=== PATIENT | female | born 1980 | race Caucasian/White ===

== ENCOUNTER 2019-11-14 10:35 | Emergency (ER) | payer BC, OTHER ==
--- NOTE | 2019-11-14 11:04 | ED ---
Lower Extremity Injury HPI - General Chief Complaint: Extremity Injury, Lower Stated Complaint: Knee Pain Time Seen by Provider: 11/14/19 10:53 Source: patient, RN notes reviewed Mode of arrival: wheelchair Limitations: no limitations - History of Present Illness Initial Comments: 39-year-old female presents emergency Department with chief complaint of left knee, right ankle injury. Patient states a few days ago she twisted her legs on some ice. Patient states her left knee is most bothersome which she also has mild right knee pain and right ankle pain. Patient states right knee is able to ambulate with no difficulty. She states there is bruising states that his been clicking and popping of her left knee. Patient had no prior injuries to this. Denies any hip pain no other injuries noted. Patient states she is on Coumadin but denies having head injury and states that she has not had her INR checked recently she states usually has problems with it being high and low. - Related Data Previous Rx's Medication Instructions Recorded methylPREDNISolone Dose Pack 4 mg PO DIRECTED #21 package 03/05/15 [Medrol Dose Pack] Allergies Allergy/AdvReac Type Severity Reaction Status Date / Time acetaminophen [From Tylenol] Allergy Unknown Verified 03/05/15 11:24 codeine Allergy Rash/Hives Verified 11/14/19 10:49 Review of Systems ROS Statement: Those systems with pertinent positive or pertinent negative responses have been documented in the HPI. ROS Other: All systems not noted in ROS Statement are negative. Past Medical History Past Medical History: Hyperlipidemia, Hypertension History of Any Multi-Drug Resistant Organisms: None Reported Past Surgical History: Section Additional Past Surgical History / Comment(s): Eye surgery Past Psychological History: Anxiety Smoking Status: Never smoker Past Alcohol Use History: Occasional Past Drug Use History: None Reported General Exam Limitations: no limitations General appearance: alert, in no apparent distress Head exam: Present: atraumatic, normocephalic, normal inspection Eye exam: Present: normal appearance, PERRL, EOMI. Absent: scleral icterus, conjunctival injection, periorbital swelling ENT exam: Present: normal exam, normal oropharynx, mucous membranes moist Neck exam: Present: normal inspection, full ROM. Absent: tenderness, meningismus, lymphadenopathy Respiratory exam: Present: normal lung sounds bilaterally. Absent: respiratory distress, wheezes, rales, rhonchi, stridor Cardiovascular Exam: Present: regular rate, normal rhythm, normal heart sounds. Absent: systolic murmur, diastolic murmur, rubs, gallop, clicks Extremities exam: Present: other (Left knee there is moderate swelling, times with palpation over the anterior surface, no laxity noted neurovascular intact lower extremity bilaterally pulses. Mild lateral malleoli tenderness on the right no laxity no foot tenderness no proximal tib-fib tenderness) Neurological exam: Present: alert Skin exam: Present: warm, dry, intact, normal color. Absent: rash Course Vital Signs 11/14/19 10:46 Temperature 97.9 F Pulse Rate 68 Respiratory 19 Rate Blood Pressure 155/99 O2 Sat by Pulse 100 Oximetry Medical Decision Making - Medical Decision Making X-ray of the knee shows no acute fracture, x-ray of the right ankle shows no acute fracture she has no tenderness over her right Achilles tendon. Patient has a right ankle sprain, left knee sprain. Patient will follow-up with orthopedics if no improvement for MRI of her left knee. - Lab Data Lab Results 11/14/19 Range/Units 11:19 PT 22.3 H (9.0-12.0) sec INR 2.3 H (<1.2) APTT 27.5 (22.0-30.0) sec Disposition Clinical Impression: Left knee sprain, Right ankle sprain Disposition: HOME SELF-CARE Condition: Stable Instructions (If sedation given, give patient instructions): Ankle Sprain (ED), Knee Sprain (ED) Additional Instructions: Please return to the Emergency Department if symptoms worsen or any other concerns. Is patient prescribed a controlled substance at d/c from ED?: No Referrals: Mary Greene MD [Primary Care Provider] - 1-2 days James Crawley MD [Medical Doctor] - 1-2 days Time of Disposition: 11:57
--- NOTE | 2019-11-14 11:20 | XR ---
EXAMINATION TYPE: XR knee complete 3 views LT, XR ankle complete 3 views RT DATE OF EXAM: 11/14/2019 COMPARISON: NONE HISTORY: 39-year-old female with pain after fall FINDINGS: Left knee: No acute fracture, subluxation, or dislocation. No significant knee joint effusion. Extensor mechanis m is intact. Right ankle: Ankle mortise is preservation of the distal tibiofibular overlap. Talar dome is intact. Small delinea tion to the Achilles tendon. Subtalar joint is aligned. No acute fracture, subluxation, or dislocatio n. IMPRESSION: Left knee and right ankle without acute osseous abnormality seen.
[2019-11-14 11:47] LABS: INR 2.3 (<1.2); Partial Thromboplastin Time 27.5 sec (22.0-30.0); Prothrombin Time 22.3 sec (9.0-12.0)
[2019-11-14 12:23] VITALS: BP 135/88; PULSE 72; RESP 18; TEMP 97.4
== END 2019-11-14 12:21 | disposition home or self-care (01) ==
LOC: EC 10:35
DX: S83.92XA Sprain of unspecified site of left knee, initial encounter (principal); S93.401A Sprain of unspecified ligament of right ankle, initial encounter; I10 Essential (primary) hypertension; Z88.5 Allergy status to narcotic agent; Z88.6 Allergy status to analgesic agent; X50.9XXA Other and unspecified overexertion or strenuous movements or postures, initial encounter
CPT/HCPCS: 99283 ×2; 36415; 85610; 85730; 73562; 73610; L1830

== ENCOUNTER 2019-11-23 12:56 | Emergency (ER) | payer OTHER ==
[2019-11-23 13:02] VITALS: BP 126/82; PULSE 97; RESP 18; TEMP 97.5
[2019-11-23] MEDS ORDERED: HYDROcodone/APAP 7.5-325MG 1 EACH TAB PO ONE (13:30)
--- NOTE | 2019-11-23 14:29 | US ---
EXAMINATION TYPE: US venous doppler duplex LE LT DATE OF EXAM: 11/23/2019 2:06 PM COMPARISON: NONE CLINICAL HISTORY: pain, swelling. h/o PE's in 2016, on Warfarin, no h/o leg dvt SIDE PERFORMED: Left TECHNIQUE: The lower extremity deep venous system is examined utilizing real time linear array sonog carol with graded compression, doppler sonography and color-flow sonography. VESSELS IMAGED: External Iliac Vein (EIV) Common Femoral Vein Deep Femoral Vein Greater Saphenous Vein * Femoral Vein Popliteal Vein Small Saphenous Vein * Proximal Calf Veins (* superficial vessels) Left Leg: Appears negative for DVT IMPRESSION: No evidence for DVT
--- NOTE | 2019-11-23 14:38 | ED ---
Lower Extremity Injury HPI - General Chief Complaint: Extremity Injury, Lower Stated Complaint: left leg injury Time Seen by Provider: 11/23/19 13:13 Source: patient, RN notes reviewed Mode of arrival: ambulatory Limitations: no limitations - History of Present Illness Initial Comments: This a 39-year-old female presents emergency Department with chief complaint of worsening left knee pain. Patient states she was seen here approximately one week ago after slip and fall. Patient had a twisting motion of her left knee and falling onto a period. She also had some ankle pain. Patient states she's been favoring her right leg which is tender mother right leg but her left knee is worsening in pain. Patient states she attempted to follow-up with or thopedics as directed but states that they would not see her until she had a dredge worker because it was a slip and fall. Patient denies any hip pain, significant leg swelling or discoloration. - Related Data Previous Rx's Medication Instructions Recorded methylPREDNISolone Dose Pack 4 mg PO DIRECTED #21 package 03/05/15 [Medrol Dose Pack] Allergies Allergy/AdvReac Type Severity Reaction Status Date / Time acetaminophen [From Tylenol] Allergy Unknown Verified 11/23/19 13:01 codeine Allergy Rash/Hives Verified 11/23/19 13:01 Review of Systems ROS Statement: Those systems with pertinent positive or pertinent negative responses have been documented in the HPI. ROS Other: All systems not noted in ROS Statement are negative. Past Medical History Past Medical History: Hyperlipidemia, Hypertension, Pulmonary Embolus (PE) History of Any Multi-Drug Resistant Organisms: None Reported Past Surgical History: Section Additional Past Surgical History / Comment(s): Eye surgery Past Psychological History: Anxiety Smoking Status: Never smoker Past Alcohol Use History: Occasional Past Drug Use History: None Reported General Exam Limitations: no limitations General appearance: alert, in no apparent distress Head exam: Present: atraumatic, normocephalic, normal inspection Neck exam: Present: normal inspection. Absent: tenderness, meningismus, lymphadenopathy Respiratory exam: Present: normal lung sounds bilaterally. Absent: respiratory distress, wheezes, rales, rhonchi, stridor Cardiovascular Exam: Present: regular rate, normal rhythm, normal heart sounds. Absent: systolic murmur, diastolic murmur, rubs, gallop, clicks Extremities exam: Present: other (Left knee there is diffuse tenderness minimal swelling, tenderness neurovascular intact limited range of motion secondary to pain) Neurological exam: Present: alert, oriented X3, motor sensory deficit Skin exam: Present: warm, dry, intact, normal color. Absent: rash Course Vital Signs 11/23/19 12:58 Temperature 97.5 F L Pulse Rate 97 Respiratory 18 Rate Blood Pressure 126/82 O2 Sat by Pulse 98 Oximetry Medical Decision Making - Medical Decision Making X-ray was reviewed which again was negative. Ultrasound was negative for acute DVT. I did discuss case with orthopedics in which the patient may be seen at the clinic for evaluation of ligamentous injury. Patient will be discharged in stable condition return parameters were discussed. Disposition Clinical Impression: Left knee sprain Disposition: HOME SELF-CARE Condition: Stable Instructions (If sedation given, give patient instructions): Knee Sprain (ED) Additional Instructions: Please return to the Emergency Department if symptoms worsen or any other concerns. Is patient prescribed a controlled substance at d/c from ED?: No Referrals: [facility] [Primary Care Provider] - 1-2 days Time of Disposition: 14:56
[2019-11-23] MEDS ORDERED: traMADol 50 MG STARTER PACK 3 TAB BTL PO STA (14:57)
== END 2019-11-23 15:04 | disposition home or self-care (01) ==
LOC: EC 12:56
DX: S83.92XA Sprain of unspecified site of left knee, initial encounter (principal); I10 Essential (primary) hypertension; Z88.5 Allergy status to narcotic agent; Z88.6 Allergy status to analgesic agent; Z86.711 Personal history of pulmonary embolism; W01.0XXA Fall on same level from slipping, tripping and stumbling without subsequent striking against object, initial encounter
CPT/HCPCS: 99283

== ENCOUNTER 2020-08-14 20:06 | Emergency (ER) | payer OTHER ==
[2020-08-14] MEDS ORDERED: ACETAMINOPHEN TAB 500 MG TAB PO STA (20:47)
[2020-08-14] MEDS ORDERED: SODIUM CHLORIDE 0.9% 1,000 ML IV STA (20:47)
[2020-08-14] MEDS ORDERED: ONDANSETRON 4 MG/2 ML VIAL IVP STA (20:47)
[2020-08-14] MEDS ORDERED: KETOROLAC 15 MG/ML 1 ML VIAL IVP STA (20:57)
--- NOTE | 2020-08-14 20:57 | ED ---
Abdominal Pain HPI - General Chief Complaint: Abdominal Pain Stated Complaint: Nausea,Diarrhea,Weakness Time Seen by Provider: 08/14/20 20:23 Source: patient Mode of arrival: wheelchair Limitations: no limitations - History of Present Illness Initial Comments: Patient is a 39-year-old female presenting to emergency Department with complaints of nausea, vomiting, diarrhea that started 4 days ago. Patient also continues to have abdominal pain with the symptoms as well. She states she ate some eggs 4 days ago that happened to be left out for a few hours and she feels like her symptoms started shortly after that. Patient describes her abdominal pain is all on the lower aspect, severe at times. She states she also has a cough and congestion that started 2 days ago. She states she has not had a fever but today she feels like she has one now. She has not been able to eat or drink very much and feels weak and fatigued. She also has a mild headache. Patient denies history of abdominal surgeries, she states she is on Coumadin secondary to history of PE. She denies being at this time. She has no further complaints. Upon arrival to the ER, patient is febrile 101.2, tachycardia at 108, rest of vitals normal. - Related Data Home Medications Medication Instructions Recorded Confirmed Warfarin [Coumadin] 7.5 mg PO AC-SUPPER 08/14/20 08/14/20 lisinopriL [Zestril] 10 mg PO DAILY 08/14/20 08/14/20 Previous Rx's Medication Instructions Recorded Azithromycin 250 mg PO DAILY 4 Days #4 tab 08/14/20 Allergies Allergy/AdvReac Type Severity Reaction Status Date / Time codeine Allergy Rash/Hives Verified 08/14/20 20:53 Review of Systems ROS Statement: Those systems with pertinent positive or pertinent negative responses have been documented in the HPI. ROS Other: All systems not noted in ROS Statement are negative. Past Medical History Past Medical History: Hyperlipidemia, Hypertension, Pulmonary Embolus (PE) History of Any Multi-Drug Resistant Organisms: None Reported Past Surgical History: Section Additional Past Surgical History / Comment(s): Eye surgery Past Psychological History: Anxiety Past Alcohol Use History: Occasional Past Drug Use History: None Reported General Exam - General Exam Comments Initial Comments: GENERAL: Patient is well-developed and well-nourished. Patient is nontoxic and in no acute distress. HEAD: Atraumatic, normocephalic. EYES: Pupils equal round and reactive to light, extraocular movements intact, sclera anicteric, conjunctiva are normal. Eyelids were unremarkable. ENT: TMs normal, nares patent, oropharynx clear without exudates. Moist mucous membranes. NECK: Normal range of motion, supple without lymphadenopathy or JVD. LUNGS: Unlabored respirations. Breath sounds clear to auscultation bilaterally and equal. No wheezes rales or rhonchi. HEART: Regular rate and rhythm without murmurs, rubs or gallops. ABDOMEN: Tender to palpation entire lower abdomen, positive guarding. Soft, normoactive bowel sounds. No masses appreciated. : Deferred MUSCULOSKELETAL: Normal extremities with adequate strength and normal range of motion, no pitting or edema. No clubbing or cyanosis. NEUROLOGICAL: Patient is alert and oriented x 3. Motor and sensory are also intact. Cranial nerves II through XII grossly intact. Symmetrical smile. Normal speech, normal gait. PSYCH: Normal mood, normal affect. SKIN: Warm, Dry, normal turgor, no rashes or lesions noted. Limitations: no limitations Course Vital Signs 08/14/20 08/14/20 20:12 23:35 Temperature 101.2 F H 99.3 F Pulse Rate 108 H 82 Respiratory 16 18 Rate Blood Pressure 134/75 130/82 O2 Sat by Pulse 96 97 Oximetry Medical Decision Making - Medical Decision Making Patient is a 39-year-old female here with nausea, vomiting, abdominal pain, fever for the last 4 days. The fever just started today, 101.2 upon arrival. Patient is on Coumadin secondary to PEs. Labs show a normal white count, hemoglobin is stable, INR is 2.1, sodium and potassium are slightly low at 133, 3.2, lipase is normal, urine shows no evidence of infection she is not . Flu is negative, rapid Covid was detected/positive. Chest x-ray shows right upper lung pneumonia, CT the abdomen and pelvis showed no acute abnormalities. Patient was given a liter fluids, Tylenol, Toradol and Zofran and has been resting comfortably in the ER. Patient was reevaluated and his temperature is 99.3, pulse is 82, 97% on room air. I discussed these findings with the patient. She has stable for discharge. I will give her a Zofran starter pack to go home with for additional nausea as well as started on azithromycin for the pneumonia. Patient can continue taking Tylenol or Motrin for fever or discomfort. She is to increase her fluid intake. She'll follow up with her PCP. Return parameters were discussed with the patient and she verbalized understanding. Case discussed Dr. Smith - Lab Data Result diagrams: 08/14/20 21:53 08/14/20 21:53 Lab Results 08/14/20 08/14/20 08/14/20 Range/Units 21:53 21:53 21:53 WBC 5.7 (3.8-10.6) k/uL RBC 4.56 (3.80-5.40) m/uL Hgb 10.9 L (11.4-16.0) gm/dL Hct 33.1 L (34.0-46.0) % MCV 72.5 L (80.0-100.0) fL MCH 23.8 L (25.0-35.0) pg MCHC 32.8 (31.0-37.0) g/dL RDW 17.9 H (11.5-15.5) % Plt Count 195 (150-450) k/uL MPV 8.5 Neutrophils % 75 % Lymphocytes % 19 % Monocytes % 4 % Eosinophils % 1 % Basophils % 1 % Neutrophils # 4.3 (1.3-7.7) k/uL Lymphocytes # 1.1 (1.0-4.8) k/uL Monocytes # 0.2 (0-1.0) k/uL Eosinophils # 0.0 (0-0.7) k/uL Basophils # 0.0 (0-0.2) k/uL Hypochromasia Slight Anisocytosis Slight Microcytosis Moderate PT 20.1 H (9.0-12.0) sec INR 2.1 H (<1.2) APTT 29.5 (22.0-30.0) sec Sodium (137-145) mmol/L Potassium (3.5-5.1) mmol/L Chloride (98-107) mmol/L Carbon Dioxide (22-30) mmol/L Anion Gap mmol/L BUN (7-17) mg/dL Creatinine (0.52-1.04) mg/dL Est GFR (CKD-EPI)AfAm (>60 ml/min/1.73 sqM) Est GFR (CKD-EPI)NonAf (>60 ml/min/1.73 sqM) Glucose (74-99) mg/dL Plasma Lactic Acid German (0.7-2.0) mmol/L Calcium (8.4-10.2) mg/dL Total Bilirubin (0.2-1.3) mg/dL AST (14-36) U/L ALT (4-34) U/L Alkaline Phosphatase (38-126) U/L Total Protein (6.3-8.2) g/dL Albumin (3.5-5.0) g/dL Lipase (23-300) U/L Urine Color Yellow Urine Appearance Cloudy H (Clear) Urine pH 6.0 (5.0-8.0) Ur Specific [place] 1.011 (1.001-1.035) Urine Protein Negative (Negative) Urine Glucose (UA) Negative (Negative) Urine Ketones 1+ H (Negative) Urine Blood Negative (Negative) Urine Nitrite Negative (Negative) Urine Bilirubin Negative (Negative) Urine Urobilinogen <2.0 (<2.0) mg/dL Ur Leukocyte Esterase Moderate H (Negative) Urine RBC 1 (0-5) /hpf Urine WBC 4 (0-5) /hpf Ur Squamous Epith Cells 5 H (0-4) /hpf Urine Bacteria Rare H (None) /hpf Urine Mucus Occasional H (None) /hpf Urine HCG, Qual (Not Detectd) Coronavirus (PCR) (Not Detectd) Influenza Type A RNA (Not Detectd) Influenza Type B (PCR) (Not Detectd) 08/14/20 08/14/20 08/14/20 Range/Units 21:53 21:53 21:53 WBC (3.8-10.6) k/uL RBC (3.80-5.40) m/uL Hgb (11.4-16.0) gm/dL Hct (34.0-46.0) % MCV (80.0-100.0) fL MCH (25.0-35.0) pg MCHC (31.0-37.0) g/dL RDW (11.5-15.5) % Plt Count (150-450) k/uL MPV Neutrophils % % Lymphocytes % % Monocytes % % Eosinophils % % Basophils % % Neutrophils # (1.3-7.7) k/uL Lymphocytes # (1.0-4.8) k/uL Monocytes # (0-1.0) k/uL Eosinophils # (0-0.7) k/uL Basophils # (0-0.2) k/uL Hypochromasia Anisocytosis Microcytosis PT (9.0-12.0) sec INR (<1.2) APTT (22.0-30.0) sec Sodium 133 L (137-145) mmol/L Potassium 3.2 L (3.5-5.1) mmol/L Chloride 103 (98-107) mmol/L Carbon Dioxide 22 (22-30) mmol/L Anion Gap 8 mmol/L BUN 5 L (7-17) mg/dL Creatinine 0.63 (0.52-1.04) mg/dL Est GFR (CKD-EPI)AfAm >90 (>60 ml/min/1.73 sqM) Est GFR (CKD-EPI)NonAf >90 (>60 ml/min/1.73 sqM) Glucose 103 H (74-99) mg/dL Plasma Lactic Acid German 1.0 (0.7-2.0) mmol/L Calcium 8.4 (8.4-10.2) mg/dL Total Bilirubin 0.5 (0.2-1.3) mg/dL AST 20 (14-36) U/L ALT 10 (4-34) U/L Alkaline Phosphatase 69 (38-126) U/L Total Protein 7.1 (6.3-8.2) g/dL Albumin 4.1 (3.5-5.0) g/dL Lipase 203 (23-300) U/L Urine Color Urine Appearance (Clear) Urine pH (5.0-8.0) Ur Specific [place] (1.001-1.035) Urine Protein (Negative) Urine Glucose (UA) (Negative) Urine Ketones (Negative) Urine Blood (Negative) Urine Nitrite (Negative) Urine Bilirubin (Negative) Urine Urobilinogen (<2.0) mg/dL Ur Leukocyte Esterase (Negative) Urine RBC (0-5) /hpf Urine WBC (0-5) /hpf Ur Squamous Epith Cells (0-4) /hpf Urine Bacteria (None) /hpf Urine Mucus (None) /hpf Urine HCG, Qual Not Detected (Not Detectd) Coronavirus (PCR) (Not Detectd) Influenza Type A RNA (Not Detectd) Influenza Type B (PCR) (Not Detectd) 08/14/20 Range/Units 21:53 WBC (3.8-10.6) k/uL RBC (3.80-5.40) m/uL Hgb (11.4-16.0) gm/dL Hct (34.0-46.0) % MCV (80.0-100.0) fL MCH (25.0-35.0) pg MCHC (31.0-37.0) g/dL RDW (11.5-15.5) % Plt Count (150-450) k/uL MPV Neutrophils % % Lymphocytes % % Monocytes % % Eosinophils % % Basophils % % Neutrophils # (1.3-7.7) k/uL Lymphocytes # (1.0-4.8) k/uL Monocytes # (0-1.0) k/uL Eosinophils # (0-0.7) k/uL Basophils # (0-0.2) k/uL Hypochromasia Anisocytosis Microcytosis PT (9.0-12.0) sec INR (<1.2) APTT (22.0-30.0) sec Sodium (137-145) mmol/L Potassium (3.5-5.1) mmol/L Chloride (98-107) mmol/L Carbon Dioxide (22-30) mmol/L Anion Gap mmol/L BUN (7-17) mg/dL Creatinine (0.52-1.04) mg/dL Est GFR (CKD-EPI)AfAm (>60 ml/min/1.73 sqM) Est GFR (CKD-EPI)NonAf (>60 ml/min/1.73 sqM) Glucose (74-99) mg/dL Plasma Lactic Acid German (0.7-2.0) mmol/L Calcium (8.4-10.2) mg/dL Total Bilirubin (0.2-1.3) mg/dL AST (14-36) U/L ALT (4-34) U/L Alkaline Phosphatase (38-126) U/L Total Protein (6.3-8.2) g/dL Albumin (3.5-5.0) g/dL Lipase (23-300) U/L Urine Color Urine Appearance (Clear) Urine pH (5.0-8.0) Ur Specific [place] (1.001-1.035) Urine Protein (Negative) Urine Glucose (UA) (Negative) Urine Ketones (Negative) Urine Blood (Negative) Urine Nitrite (Negative) Urine Bilirubin (Negative) Urine Urobilinogen (<2.0) mg/dL Ur Leukocyte Esterase (Negative) Urine RBC (0-5) /hpf Urine WBC (0-5) /hpf Ur Squamous Epith Cells (0-4) /hpf Urine Bacteria (None) /hpf Urine Mucus (None) /hpf Urine HCG, Qual (Not Detectd) Coronavirus (PCR) Detected A (Not Detectd) Influenza Type A RNA Not Detected (Not Detectd) Influenza Type B (PCR) Not Detected (Not Detectd) Disposition Clinical Impression: Nausea & vomiting, Pneumonia due to COVID-19 virus Disposition: HOME SELF-CARE Condition: Stable Instructions (If sedation given, give patient instructions): Pneumonia (ED) Additional Instructions: Please return to the Emergency Department if symptoms worsen or any other concerns. Take antibiotic as prescribed. Continue with Tylenol or Motrin for discomfort or fevers. Increase fluid intake. Follow-up with PCP. Prescriptions: Azithromycin 250 mg PO DAILY 4 Days #4 tab Is patient prescribed a controlled substance at d/c from ED?: No Referrals: [facility] [Primary Care Provider] - 1-2 days
[2020-08-14 22:07] LABS: Anisocytosis Slight; Basophils % (A) 1 %; Eosinophils % (A) 1 %; HCT 33.1 % (34.0-46.0); HGB 10.9 gm/dL (11.4-16.0); Hypochromasia Slight; Lymphocytes # (A) 1.1 k/uL (1.0-4.8); Lymphocytes % (A) 19 %; MCH 23.8 pg (25.0-35.0); MCHC 32.8 g/dL (31.0-37.0); MCV 72.5 fL (80.0-100.0); Mean Platelet Volume 8.5; Microcytosis Moderate; Monocytes # (A) 0.2 k/uL (0-1.0); Monocytes % (A) 4 %; Neutrophils # (A) 4.3 k/uL (1.3-7.7); Neutrophils % (A) 75 %; Platelet Count 195 k/uL (150-450); RBC 4.56 m/uL (3.80-5.40); RDW 17.9 % (11.5-15.5); WBC 5.7 k/uL (3.8-10.6)
[2020-08-14 22:09] LABS: Appearance,Urine Cloudy (Clear); Bacteria,Urine Rare /hpf; Bilirubin,Urine Negative (Negative); Blood,Urine Negative (Negative); Color,Urine Yellow; Glucose,Urine (UA) Negative (Negative); Ketones,Urine 1+ (Negative); Leukocyte Esterase,Urine Moderate (Negative); Mucus,Urine Occasional /hpf; Nitrite,Urine Negative (Negative); Protein,Urine Negative (Negative); RBC,Urine 1 /hpf (0-5); Specific Gravity,Urine 1.011 (1.001-1.035); Squamous Epithelial Cell,Urine 5 /hpf (0-4); Urobilinogen,Urine <2.0 mg/dL (<2.0); WBC,Urine 4 /hpf (0-5)
[2020-08-14 22:18] LABS: INR 2.1 (<1.2); Partial Thromboplastin Time 29.5 sec (22.0-30.0); Prothrombin Time 20.1 sec (9.0-12.0)
[2020-08-14 22:19] LABS: ALT 10 U/L (4-34); AST 20 U/L (14-36); African American GFR (CKD) >90 (>60 ml/min/1.73 sqM); Albumin 4.1 g/dL (3.5-5.0); Alkaline Phosphatase 69 U/L (38-126); Anion Gap 8 mmol/L; Blood Urea Nitrogen 5 mg/dL (7-17); Calcium 8.4 mg/dL (8.4-10.2); Carbon Dioxide 22 mmol/L (22-30); Chloride 103 mmol/L (98-107); Glucose 103 mg/dL (74-99); Lipase 203 U/L (23-300); Non-African American GFR(CKD) >90 (>60 ml/min/1.73 sqM); Potassium 3.2 mmol/L (3.5-5.1); Sodium 133 mmol/L (137-145); Total Bilirubin 0.5 mg/dL (0.2-1.3); Total Protein 7.1 g/dL (6.3-8.2)
[2020-08-14 22:26] LABS: SARS-CoV-2 RNA Rapid Abbott Detected (Not Detectd)
--- NOTE | 2020-08-14 22:51 | XR ---
EXAMINATION TYPE: XR chest 2V DATE OF EXAM: 08/14/2020 COMPARISON: February 27, 2015 HISTORY: Cough TECHNIQUE: 2 views FINDINGS: There is some mild patchy airspace infiltrate in the right upper lobe. This is seen in the anterior segment. The other lung velázquez are clear. There is no pleural effusion. Pulmonary vascularit y is normal. Heart and mediastinum are normal. Bony thorax is intact. IMPRESSION: There is right upper lobe pneumonia that appears new compared to old exam.
--- NOTE | 2020-08-14 23:19 | CT ---
EXAMINATION TYPE: CT abdomen pelvis w con DATE OF EXAM: 08/14/2020 COMPARISON: 04/20/2011 HISTORY: abdominal pain, N/V/D CT DLP: 1436.9 mGycm Automated exposure control for dose reduction was used. CONTRAST: Performed with IV Contrast, patient injected with 100 mL of Isovue 300. There are some patchy airspace infiltrates in the subpleural lower lobes bilaterally. There is no ple ural effusion. Heart is borderline enlarged. There is no pericardial effusion. Liver shows no focal defect. Spleen is intact. There is no pancreatic mass. Gallbladder is slightly c ontracted. The stomach is intact. There is no adrenal mass. Kidneys have normal size. There is no hydronephrosis. Delayed images show n ormal renal excretion. There is no retroperitoneal adenopathy. Ureters are not dilated. Bladder diste nds smoothly. Uterus is anteverted. There is no free fluid in the pelvis. There is no inguinal hernia . There is broad-based umbilical hernia containing fat. Appendix is medial and appears normal. Terminal ileum is within normal limits. There is no mesenteric edema. There is no ascites or free air. There is no sign of a bowel obstruction. Lumbar vertebra have normal alignment. There is posterior disc herniation and calcification at L4-5. This is seen towards the left side. The bony pelvis is intact. IMPRESSION: There are patchy subpleural bilateral lower lobe pulmonary infiltrates consistent with inflammatory d isease. There is also infiltrate at the lung bases on the old CT scan in a different distribution. Mild cardiomegaly. Normal appendix. No acute abnormality within the abdomen pelvis.
[2020-08-14 23:36] VITALS: BP 130/82; PULSE 82; RESP 18; TEMP 99.3
[2020-08-14] MEDS ORDERED: AZITHROMYCIN 500 MG TAB PO STA (23:46)
[2020-08-14] MEDS ORDERED: ONDANSETRON 4 MG ODT STARTER PACK 2 TAB BTL PO STA (23:46)
== END 2020-08-15 00:09 | disposition home or self-care (01) ==
LOC: EC 20:06
DX: U07.1 COVID-19 (principal); J12.89 Other viral pneumonia; R10.30 Lower abdominal pain, unspecified; I10 Essential (primary) hypertension; I26.99 Other pulmonary embolism without acute cor pulmonale; Z79.01 Long term (current) use of anticoagulants; Z79.899 Other long term (current) drug therapy; Z88.5 Allergy status to narcotic agent
CPT/HCPCS: 36415; 80053; 83605; 83690; 85025; 85610; 85730; 81001; 81025; 87040; 87502; 87635; 71046; 74177; 99284; 96374; 96375; 96361 ×2; J2405; J1885; Q9967

== ENCOUNTER 2021-04-25 16:28 | Emergency (ER) | payer OTHER ==
[2021-04-25 16:38] VITALS: BP 121/86
[2021-04-25] MEDS ORDERED: ACETAMINOPHEN TAB 500 MG TAB PO STA (17:06)
[2021-04-25 17:49] VITALS: PULSE 98; RESP 18; TEMP 99.3
--- NOTE | 2021-04-25 17:59 | ED ---
URI HPI - General Chief Complaint: Upper Respiratory Infection Stated Complaint: Covid symptoms Time Seen by Provider: 04/25/21 17:02 Source: patient Mode of arrival: ambulatory Limitations: no limitations - History of Present Illness Initial Comments: Patient is a 40-year-old female presenting to the emergency Department with complaints of chest congestion, cough and diarrhea over the past 4-5 days. Patient states she had covid in July. She has not received a covid vaccine. She denies any chest pain or shortness of breath. She states she has phlegm production. She denies any nausea or vomiting. She denies any fevers or chills. History of mild asthma, she is a nonsmoker. Her family has had similar symptoms. Patient has no further complaints at this time. Upon arrival to the ER, she is febrile to 100.3, rest of vitals normal. - Related Data Home Medications Medication Instructions Recorded Confirmed Warfarin [Coumadin] 7.5 mg PO AC-SUPPER 08/14/20 08/14/20 lisinopriL [Zestril] 10 mg PO DAILY 08/14/20 08/14/20 Previous Rx's Medication Instructions Recorded Azithromycin 250 mg PO DAILY 4 Days #4 tab 08/14/20 Azithromycin [Zithromax Z-pack (6 0 mg PO DIRECTED #1 pack 04/25/21 tabs)] Allergies Allergy/AdvReac Type Severity Reaction Status Date / Time codeine Allergy Rash/Hives Verified 04/25/21 16:38 Review of Systems ROS Statement: Those systems with pertinent positive or pertinent negative responses have been documented in the HPI. ROS Other: All systems not noted in ROS Statement are negative. Past Medical History Past Medical History: Hyperlipidemia, Hypertension, Pulmonary Embolus (PE) History of Any Multi-Drug Resistant Organisms: None Reported Past Surgical History: Section Additional Past Surgical History / Comment(s): Eye surgery Past Psychological History: Anxiety Smoking Status: Never smoker Past Alcohol Use History: Occasional Past Drug Use History: None Reported General Exam - General Exam Comments Initial Comments: GENERAL: Patient is well-developed and well-nourished. Patient is nontoxic and in no acute distress. HEAD: Atraumatic, normocephalic. EYES: Pupils equal round and reactive to light, extraocular movements intact, sclera anicteric, conjunctiva are normal. Eyelids were unremarkable. ENT: TMs normal, nares patent, oropharynx clear without exudates. Moist mucous membranes. NECK: Normal range of motion, supple without lymphadenopathy or JVD. LUNGS: Unlabored respirations. Breath sounds clear to auscultation bilaterally and equal. No wheezes rales or rhonchi. HEART: Regular rate and rhythm without murmurs, rubs or gallops. ABDOMEN: Soft, nontender, normoactive bowel sounds. No guarding, no rebound. No masses appreciated. : Deferred MUSCULOSKELETAL: Normal extremities with adequate strength and normal range of motion, no pitting or edema. No clubbing or cyanosis. NEUROLOGICAL: Patient is alert and oriented x 3. SKIN: Warm, Dry, normal turgor, no rashes or lesions noted. Limitations: no limitations Course Vital Signs 04/25/21 04/25/21 04/25/21 16:36 16:53 17:48 Temperature 98.7 F 100.3 F H 99.3 F Pulse Rate 105 H 98 Respiratory 17 18 Rate Blood Pressure 121/86 O2 Sat by Pulse 97 98 Oximetry Medical Decision Making - Medical Decision Making Patient is a 40-year-old female here with upper respiratory symptoms for the past 4-5 days as well as diarrhea. She had concerns for covid as family memebers have similar symptoms. She was febrile 100.3 upon arrival. Her exam is unremarkable. Rapid covid is negative. Chest x-ray shows evidence for possible developing infiltrate. Patient was given Tylenol. Patient's fever did come down, rest of vitals remained stable. I discussed these findings with the patient. I will start her on antibiotic for possible pneumonia. Recommended continue Tylenol or Motrin for fever or pain control. She'll follow-up with her primary care. She is in agreement with this plan of care. - Lab Data Lab Results 04/25/21 Range/Units 17:06 Coronavirus (PCR) Not Detected (Not Detectd) Disposition Clinical Impression: Pneumonia Disposition: HOME SELF-CARE Condition: Stable Instructions (If sedation given, give patient instructions): Community Acquired Pneumonia (ED) Additional Instructions: Please return to the Emergency Department if symptoms worsen or any other concerns. Take antibiotics as prescribed. May use Tylenol or Motrin for fevers or discomfort. Please follow up with your primary care physician. Prescriptions: Azithromycin [Zithromax Z-pack (6 tabs)] 0 mg PO DIRECTED #1 pack Is patient prescribed a controlled substance at d/c from ED?: No Referrals: [facility] [Primary Care Provider] - 1-2 days Evy Sawyer MD [STAFF PHYSICIAN] - 1-2 days Time of Disposition: 18:46
--- NOTE | 2021-04-25 18:22 | XR ---
EXAMINATION TYPE: XR chest 2V DATE OF EXAM: 04/25/2021 COMPARISON: 08/14/2020. HISTORY: Cough. TECHNIQUE: Frontal and lateral views of the chest are obtained. FINDINGS: There is mild bibasilar hazy opacities. No pleural effusion, or pneumothorax seen. The ca rdiac silhouette size is within normal limits. The osseous structures are intact. IMPRESSION: Mild bibasilar atelectasis versus developing infiltrates.
== END 2021-04-25 18:54 | disposition home or self-care (01) ==
LOC: EC 16:28
DX: J18.9 Pneumonia, unspecified organism (principal); I10 Essential (primary) hypertension; J45.909 Unspecified asthma, uncomplicated; Z88.5 Allergy status to narcotic agent; Z86.711 Personal history of pulmonary embolism; Z79.899 Other long term (current) drug therapy; Z20.822 Contact with and (suspected) exposure to COVID-19
CPT/HCPCS: 71046; 87635; 99284

== ENCOUNTER → 2021-07-02 | Outpatient (CLI) | payer OTHER ==
[2021-07-02 23:49] LABS: Basophils # (A) 0.06 X 10*3/uL (0.00-0.10); Basophils % (A) 0.8 %; Eosinophils # (A) 0.11 X 10*3/uL (0.04-0.35); Eosinophils % (A) 1.4 %; HCT 38.1 % (37.2-46.3); HGB 11.8 g/dL (12.0-15.0); Lymphocytes # (A) 2.29 X 10*3/uL (0.90-5.00); Lymphocytes % (A) 29.2 %; MCH 27.3 pg (27.0-32.0); MCV 88.2 fL (80.0-97.0); Mean Platelet Volume 12.4 fL (9.5-12.2); Monocytes # (A) 0.36 X 10*3/uL (0.20-1.00); Monocytes % (A) 4.6 %; Neutrophils % (A) 63.7 %; Platelet Count 380 X 10*3/uL (140-440); RBC 4.32 X 10*6/uL (4.10-5.20); RDW 14.2 % (11.5-14.5); WBC 7.84 X 10*3/uL (4.50-10.00)
[2021-07-03 15:33] LABS: % Iron Saturation 5.63 (12.00-45.00); Ferritin 14.5 ng/mL (10.0-291.0)
== END | disposition home or self-care (01) ==
LOC: LABWHC1 14:58
PROVIDERS: ATTEND Internal Medicine Critical Care Medicine
DX: R06.09 Other forms of dyspnea (principal)
CPT/HCPCS: 36415; 82728; 83540; 83550; 85025

== ENCOUNTER → 2021-07-19 | Outpatient (CLI) | payer OTHER ==
--- NOTE | 2021-07-20 17:31 | ECHOF ---
Referral Reason:R06.09 Dyspnea MEASUREMENTS -------- HEIGHT: 170.2 cm WEIGHT: 104.3 kg BP: 141/69 RVIDd: 2.8 cm (< 3.3) IVSd: 0.9 cm (0.6 - 1.1) LVIDd: 4.9 cm (3.9 - 5.3) LVPWd: 1.0 cm (0.6 - 1.1) IVSs: 1.5 cm LVIDs: 3.0 cm LVPWs: 1.5 cm LA Diam: 3.7 cm (2.7 - 3.8) LAESV Index (A-L): 18.79 ml/m Ao Diam: 2.9 cm (2.0 - 3.7) AV Cusp: 2.4 cm (1.5 - 2.6) MV EXCURSION: 20.347 mm (> 18.000) MV EF SLOPE: 154 mm/s (70 - 150) EPSS: 0.7 cm MV E Emmanuel: 1.02 m/s MV DecT: 188 ms MV A Emmanuel: 0.75 m/s MV E/A Ratio: 1.36 FINDINGS -------- Sinus rhythm. This was a technically adequate study. The left ventricular size is normal. Left ventricular wall thickness is normal. Overall left vent ricular systolic function is low-normal with, an EF between 50 - 55 %. The right ventricle is normal in size. Normal LA size by volume 22+/-6 ml/m2. The right atrium is normal in size. Interatrial and interventricular septum intact. The aortic valve is trileaflet, and appears structurally normal. No aortic stenosis or regurgitation. The mitral valve is normal. The tricuspid valve appears structurally normal. Unable to estimate RVSP due to inadequate TR jet s pectral doppler profile. Trace/mild (physiologic) pulmonic regurgitation. The aortic root size is normal. Normal inferior vena cava with normal inspiratory collapse consistent with estimated right atrial pre ssure of 5 mmHg. There is no pericardial effusion. CONCLUSIONS -------- 1. The left ventricular size is normal. 2. Left ventricular wall thickness is normal. 3. Overall left ventricular systolic function is low-normal with, an EF between 50 - 55 %. 4. The aortic valve is trileaflet, and appears structurally normal. No aortic stenosis or regurgitati on. 5. Trace/mild (physiologic) pulmonic regurgitation. 6. There is no pericardial effusion. AUTO BODY PAINTER: Josie Covarrubias RDCS
== END | disposition home or self-care (01) ==
LOC: RADECHMAIN 15:01
PROVIDERS: ATTEND Internal Medicine Critical Care Medicine
DX: I37.1 Nonrheumatic pulmonary valve insufficiency (principal)
CPT/HCPCS: 93306

== ENCOUNTER 2021-07-26 15:13 | Emergency (ER) | payer OTHER ==
[2021-07-26 15:54] VITALS: BP 142/86; PULSE 85; RESP 20; TEMP 98.5
[2021-07-26] MEDS ORDERED: predniSONE 50 MG TAB PO STA (16:23)
[2021-07-26] MEDS ORDERED: diphenhydrAMINE 50 MG CAP PO STA (16:23)
[2021-07-26] MEDS ORDERED: FAMOTIDINE 20 MG TAB PO STA (16:23)
--- NOTE | 2021-07-26 16:26 | ED ---
Allergic Reaction HPI - General Chief complaint: Allergic Reaction Stated complaint: Possible allergic reaction Time Seen by Provider: 07/26/21 16:14 Source: patient, RN notes reviewed Mode of arrival: ambulatory Limitations: no limitations - History of Present Illness Initial Comments: 4-year-old female presents emergency Department with chief complaint of possible reaction. Patient states she had a flu shot she is go started having some swelling at the site few hours after but states that she started feeling itchy all over, felt short of breath earlier today. She has not taken any Benadryl. Patient's ever had reaction like this in the past. Patient states she's is more itchy than anything. - Related Data Home Medications Medication Instructions Recorded Confirmed Warfarin [Coumadin] 7.5 mg PO AC-SUPPER 08/14/20 08/14/20 lisinopriL [Zestril] 10 mg PO DAILY 08/14/20 08/14/20 Previous Rx's Medication Instructions Recorded Azithromycin 250 mg PO DAILY 4 Days #4 tab 08/14/20 Azithromycin [Zithromax Z-pack (6 0 mg PO DIRECTED #1 pack 04/25/21 tabs)] predniSONE 50 mg PO DAILY #3 tab 07/26/21 Allergies Allergy/AdvReac Type Severity Reaction Status Date / Time codeine Allergy Rash/Hives Verified 04/25/21 16:38 Influenza Virus Vaccines Allergy Rash/Hives Verified 07/26/21 15:55 Review of Systems ROS Statement: Those systems with pertinent positive or pertinent negative responses have been documented in the HPI. ROS Other: All systems not noted in ROS Statement are negative. Past Medical History Past Medical History: Hyperlipidemia, Hypertension, Pulmonary Embolus (PE) History of Any Multi-Drug Resistant Organisms: None Reported Past Surgical History: Section Additional Past Surgical History / Comment(s): Eye surgery Past Psychological History: Anxiety Smoking Status: Never smoker Past Alcohol Use History: Occasional Past Drug Use History: None Reported General Exam Limitations: no limitations General appearance: alert, in no apparent distress Head exam: Present: atraumatic, normocephalic, normal inspection Eye exam: Present: normal appearance, PERRL, EOMI. Absent: scleral icterus, conjunctival injection, periorbital swelling ENT exam: Present: normal exam, mucous membranes moist Neck exam: Present: normal inspection, full ROM. Absent: tenderness, meningismus, lymphadenopathy Respiratory exam: Present: normal lung sounds bilaterally. Absent: respiratory distress, wheezes, rales, rhonchi, stridor Cardiovascular Exam: Present: regular rate, normal rhythm, normal heart sounds. Absent: systolic murmur, diastolic murmur, rubs, gallop, clicks Skin exam: Present: warm, dry, intact, normal color, rash (Left bicep region there is an erythematous rash noted) Course Vital Signs 07/26/21 15:51 Temperature 98.5 F Pulse Rate 85 Respiratory 20 Rate Blood Pressure 142/86 O2 Sat by Pulse 98 Oximetry Medical Decision Making - Medical Decision Making Patient does have localized reaction at the site which is slightly lower than usual, patient feels itchy will be given Benadryl, prednisone and Pepcid. Patient discharged with prednisone. Disposition Clinical Impression: Allergic reaction Disposition: HOME SELF-CARE Condition: Stable Instructions (If sedation given, give patient instructions): General Allergic Reaction (ED) Additional Instructions: Continue Benadryl as directed. Please return to the Emergency Department if symptoms worsen or any other concerns. Prescriptions: predniSONE 50 mg PO DAILY #3 tab Is patient prescribed a controlled substance at d/c from ED?: No Referrals: [facility] [Primary Care Provider] - 1-2 days Time of Disposition: 16:26
== END 2021-07-26 17:51 | disposition home or self-care (01) ==
LOC: EC 15:13
DX: R06.02 Shortness of breath (principal); T50.B95A Adverse effect of other viral vaccines, initial encounter; I10 Essential (primary) hypertension; E78.5 Hyperlipidemia, unspecified; F41.9 Anxiety disorder, unspecified; Z79.01 Long term (current) use of anticoagulants; Z88.5 Allergy status to narcotic agent; Z88.7 Allergy status to serum and vaccine; Z86.711 Personal history of pulmonary embolism
CPT/HCPCS: 99283; J7512

== ENCOUNTER 2021-08-30 09:54 | Emergency (ER) | payer OTHER ==
[2021-08-30 10:13] VITALS: RESP 18; TEMP 98.6
--- NOTE | 2021-08-30 11:23 | XR ---
EXAMINATION TYPE: XR chest 2V DATE OF EXAM: 08/30/2021 COMPARISON: 04/25/2021 INDICATION: Cough and congestion TECHNIQUE: Single frontal view of the chest is obtained. FINDINGS: The heart size is normal. The pulmonary vasculature is normal. The lungs are clear. IMPRESSION: 1. No acute pulmonary process.
--- NOTE | 2021-08-30 11:26 | ED ---
URI HPI - General Chief Complaint: Upper Respiratory Infection Stated Complaint: covid symptoms Time Seen by Provider: 08/30/21 10:16 Source: patient, RN notes reviewed Mode of arrival: ambulatory Limitations: no limitations - History of Present Illness Initial Comments: Patient is a 40-year-old female that presents to the emergency department complaining of chest pressure headache congestion and cough. She notes she been having symptoms for the past 4 days. She notes she was tested for Covid but is a send out test. She notes she came to the emergency room to get evaluated. Patient was otherwise well-appearing while sitting up in bed. 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 She was otherwise well- appearing in no apparent distress or pain. Vital signs are stable. She denied shortness of breath nausea vomiting diarrhea constipation fever fatigue chills. - Related Data Home Medications Medication Instructions Recorded Confirmed Albuterol Sulfate [Proair Hfa] 2 puff INHALATION RT-Q6H PRN 08/30/21 08/30/21 Apixaban [Eliquis] 2.5 mg PO BID 08/30/21 08/30/21 Ferrous Sulfate [Feosol] 325 mg PO Q72H 08/30/21 08/30/21 Lisinopril-Hctz 10-12.5 mg 1 tab PO DAILY 08/30/21 08/30/21 [Zestoretic 10-12.5] Allergies Allergy/AdvReac Type Severity Reaction Status Date / Time codeine Allergy Rash/Hives Verified 08/30/21 12:04 Influenza Virus Vaccines Allergy Rash/Hives Verified 08/30/21 12:04 Review of Systems ROS Statement: Those systems with pertinent positive or pertinent negative responses have been documented in the HPI. ROS Other: All systems not noted in ROS Statement are negative. Past Medical History Past Medical History: Hyperlipidemia, Hypertension, Pulmonary Embolus (PE) History of Any Multi-Drug Resistant Organisms: None Reported Past Surgical History: Section Additional Past Surgical History / Comment(s): Eye surgery Past Psychological History: Anxiety Smoking Status: Never smoker Past Alcohol Use History: Occasional Past Drug Use History: None Reported General Exam Limitations: no limitations General appearance: alert, in no apparent distress, obese Head exam: Present: atraumatic, normocephalic, normal inspection Eye exam: Present: normal appearance, PERRL, EOMI. Absent: scleral icterus, conjunctival injection, periorbital swelling ENT exam: Present: normal exam, mucous membranes moist Neck exam: Present: normal inspection Respiratory exam: Present: normal lung sounds bilaterally. Absent: respiratory distress, wheezes, rales, rhonchi, stridor Cardiovascular Exam: Present: regular rate, normal rhythm, normal heart sounds. Absent: systolic murmur, diastolic murmur, rubs, gallop, clicks Extremities exam: Present: normal inspection, full ROM, normal capillary refill. Absent: tenderness, pedal edema, joint swelling, calf tenderness Neurological exam: Present: alert, oriented X3 Psychiatric exam: Present: normal affect, normal mood Skin exam: Present: warm, dry, intact, normal color. Absent: rash Course Vital Signs 08/30/21 08/30/21 10:09 10:48 Temperature 98.6 F Pulse Rate 72 Respiratory 18 18 Rate Blood Pressure 163/110 O2 Sat by Pulse 99 Oximetry Medical Decision Making - Medical Decision Making 40-year-old female complaining of chest pressure, cough, headache for the past 4 days. Labs, EKG, cardiac cath lab technologist, chest x-ray, 1 L normal saline ordered. Covid test ordered and was negative. Chest x-ray negative for any acute cardiopulmonary process per Labs unremarkable. EKG within normal limits. Patient most likely has a viral upper respiratory tract infection. Case discussed with Dr. Zamarripa, patient discharge home. Patient was informed of results in his cerebral discharge home with conservative management. - Lab Data Result diagrams: 08/30/21 10:28 08/30/21 10:28 Lab Results 08/30/21 08/30/21 08/30/21 Range/Units 10:28 10:28 10:28 WBC 10.0 (3.8-10.6) k/uL RBC 4.70 (3.80-5.40) m/uL Hgb 13.0 (11.4-16.0) gm/dL Hct 39.4 (34.0-46.0) % MCV 83.9 (80.0-100.0) fL MCH 27.6 (25.0-35.0) pg MCHC 32.9 (31.0-37.0) g/dL RDW 14.7 (11.5-15.5) % Plt Count 408 (150-450) k/uL MPV 9.7 Neutrophils % 68 % Lymphocytes % 24 % Monocytes % 4 % Eosinophils % 2 % Basophils % 1 % Neutrophils # 6.8 (1.3-7.7) k/uL Lymphocytes # 2.4 (1.0-4.8) k/uL Monocytes # 0.4 (0-1.0) k/uL Eosinophils # 0.2 (0-0.7) k/uL Basophils # 0.1 (0-0.2) k/uL Sodium 136 L (137-145) mmol/L Potassium 4.5 (3.5-5.1) mmol/L Chloride 105 (98-107) mmol/L Carbon Dioxide 20 L (22-30) mmol/L Anion Gap 11 mmol/L BUN 8 (7-17) mg/dL Creatinine 0.70 (0.52-1.04) mg/dL Est GFR (CKD-EPI)AfAm >90 (>60 ml/min/1.73 sqM) Est GFR (CKD-EPI)NonAf >90 (>60 ml/min/1.73 sqM) Glucose 112 H (74-99) mg/dL Calcium 9.7 (8.4-10.2) mg/dL Total Bilirubin 0.6 (0.2-1.3) mg/dL AST 19 (14-36) U/L ALT 12 (4-34) U/L Alkaline Phosphatase 83 (38-126) U/L Troponin I <0.012 (0.000-0.034) ng/mL Total Protein 8.0 (6.3-8.2) g/dL Albumin 4.8 (3.5-5.0) g/dL Coronavirus (PCR) (Not Detectd) 08/30/21 Range/Units 10:30 WBC (3.8-10.6) k/uL RBC (3.80-5.40) m/uL Hgb (11.4-16.0) gm/dL Hct (34.0-46.0) % MCV (80.0-100.0) fL MCH (25.0-35.0) pg MCHC (31.0-37.0) g/dL RDW (11.5-15.5) % Plt Count (150-450) k/uL MPV Neutrophils % % Lymphocytes % % Monocytes % % Eosinophils % % Basophils % % Neutrophils # (1.3-7.7) k/uL Lymphocytes # (1.0-4.8) k/uL Monocytes # (0-1.0) k/uL Eosinophils # (0-0.7) k/uL Basophils # (0-0.2) k/uL Sodium (137-145) mmol/L Potassium (3.5-5.1) mmol/L Chloride (98-107) mmol/L Carbon Dioxide (22-30) mmol/L Anion Gap mmol/L BUN (7-17) mg/dL Creatinine (0.52-1.04) mg/dL Est GFR (CKD-EPI)AfAm (>60 ml/min/1.73 sqM) Est GFR (CKD-EPI)NonAf (>60 ml/min/1.73 sqM) Glucose (74-99) mg/dL Calcium (8.4-10.2) mg/dL Total Bilirubin (0.2-1.3) mg/dL AST (14-36) U/L ALT (4-34) U/L Alkaline Phosphatase (38-126) U/L Troponin I (0.000-0.034) ng/mL Total Protein (6.3-8.2) g/dL Albumin (3.5-5.0) g/dL Coronavirus (PCR) Not Detected (Not Detectd) - EKG Data -: EKG Interpreted by Dc EKG shows normal: sinus rhythm Rate: normal EKG Comments: Ventricular rate 71 bpm, W[place] interval 148 ms, QRS duration 84 ms, QTC 458 ms, PRT axes 56/0/6. Normal sinus rhythm, normal ECG. - Radiology Data Radiology results: report reviewed, image reviewed Chest x-ray: No acute cardiopulmonary process. Disposition Clinical Impression: Acute upper respiratory infection Disposition: HOME SELF-CARE Condition: Stable Instructions (If sedation given, give patient instructions): Upper Respiratory Infection (ED) Additional Instructions: Please return to the Emergency Department if symptoms worsen or any other concerns. Follow-up with primary care 1-2 days. Conservative management with Tylenol Motrin for any fevers or pain. Is patient prescribed a controlled substance at d/c from ED?: No [facility] - 1-2 days Time of Disposition: 12:29
[2021-08-30 11:40] LABS: Basophils # (A) 0.1 k/uL (0-0.2); Basophils % (A) 1 %; Eosinophils # (A) 0.2 k/uL (0-0.7); Eosinophils % (A) 2 %; HCT 39.4 % (34.0-46.0); Lymphocytes # (A) 2.4 k/uL (1.0-4.8); Lymphocytes % (A) 24 %; MCH 27.6 pg (25.0-35.0); MCHC 32.9 g/dL (31.0-37.0); MCV 83.9 fL (80.0-100.0); Mean Platelet Volume 9.7; Monocytes # (A) 0.4 k/uL (0-1.0); Monocytes % (A) 4 %; Neutrophils # (A) 6.8 k/uL (1.3-7.7); Neutrophils % (A) 68 %; Platelet Count 408 k/uL (150-450); RDW 14.7 % (11.5-15.5)
[2021-08-30 11:51] LABS: ALT 12 U/L (4-34); AST 19 U/L (14-36); African American GFR (CKD) >90 (>60 ml/min/1.73 sqM); Albumin 4.8 g/dL (3.5-5.0); Alkaline Phosphatase 83 U/L (38-126); Anion Gap 11 mmol/L; Blood Urea Nitrogen 8 mg/dL (7-17); Calcium 9.7 mg/dL (8.4-10.2); Carbon Dioxide 20 mmol/L (22-30); Chloride 105 mmol/L (98-107); Glucose 112 mg/dL (74-99); Non-African American GFR(CKD) >90 (>60 ml/min/1.73 sqM); Potassium 4.5 mmol/L (3.5-5.1); Sodium 136 mmol/L (137-145); Total Bilirubin 0.6 mg/dL (0.2-1.3)
[2021-08-30 12:44] VITALS: BP 94/62; PULSE 80
== END 2021-08-30 12:44 | disposition home or self-care (01) ==
LOC: EC 09:54
DX: J06.9 Acute upper respiratory infection, unspecified (principal); I10 Essential (primary) hypertension; E78.5 Hyperlipidemia, unspecified; F41.9 Anxiety disorder, unspecified; Z79.01 Long term (current) use of anticoagulants; Z88.5 Allergy status to narcotic agent; Z88.7 Allergy status to serum and vaccine; Z86.711 Personal history of pulmonary embolism; Z20.822 Contact with and (suspected) exposure to COVID-19
CPT/HCPCS: 36415; 71046; 80053; 84484; 85025; 87635; 93005; 99285

== ENCOUNTER 2021-12-28 13:49 | Emergency (ER) | payer OTHER ==
[2021-12-28 13:55] VITALS: BP 164/94; PULSE 95; RESP 18; TEMP 97.4
--- NOTE | 2021-12-28 14:54 | CT ---
EXAMINATION TYPE: CT brain cspine wo con DATE OF EXAM: 12/28/2021 COMPARISON: CT brain February 06, 2016. CT cervical spine April 20, 2011 HISTORY: fall CT DLP: 1378.4 mGycm. Automated Exposure Control for Dose Reduction was Utilized. TECHNIQUE: CT scan of the head and cervical spine are performed without contrast. FINDINGS: There is no acute intracranial hemorrhage, mass effect, or midline shift identified. The ventricles and sulci are within normal limits in size. Daniels-white matter differentiation is maintain ed. The globes are intact and the visualized sinuses are clear. The calvarium is intact. Cerumen rede monstrated in the deep bilateral external auditory canals. Cervical spine is visualized in its entirety from C1 through upper thoracic levels and demonstrates s table and satisfactory alignment without evidence of acute fracture or dislocation. Prevertebral sof t tissue appears within normal limits. The C1-C2 articulation is within normal limits on the coronal images. Vertebral body heights and disc space heights are maintained. Spinal canal is preserved. Ax ial images show normal-sized thyroid. Lung apices show no pneumothorax. IMPRESSION: 1. There is no acute fracture or dislocation evident in the cervical spine. 2. No acute intracranial hemorrhage or midline shift is seen. No significant change from prior studies.
--- NOTE | 2021-12-28 15:02 | XR ---
EXAMINATION TYPE: XR chest 2V DATE OF EXAM: 12/28/2021 COMPARISON: Chest x-ray August 30, 2021 HISTORY: Pain after fall injury. TECHNIQUE: Frontal and lateral views of the chest are obtained. FINDINGS: There is no suspicious new focal air space opacity, pleural effusion, or pneumothorax seen . The cardiac silhouette size remains within normal limits. The osseous structures are intact. IMPRESSION: No acute process. No significant change from prior.
--- NOTE | 2021-12-28 15:03 | XR ---
EXAMINATION TYPE: XR knee complete LT DATE OF EXAM: 12/28/2021 CLINICAL HISTORY: Pain after recent fall injury. TECHNIQUE: Three views of the left knee are obtained. COMPARISON: None. FINDINGS: There is no acute fracture/dislocation evident in left knee. Mild tricompartment joint spa ce loss redemonstrated. No significant spurring. The overlying soft tissue appears unremarkable. IMPRESSION: There is no acute fracture or dislocation in the left knee.
--- NOTE | 2021-12-28 15:03 | XR ---
EXAMINATION TYPE: XR shoulder complete LT DATE OF EXAM: 12/28/2021 CLINICAL HISTORY: Pain after fall downstairs injury. TECHNIQUE: Three views of the left shoulder are obtained. COMPARISON: None. FINDINGS: There is no acute fracture/dislocation evident in the left shoulder. The acromioclavicula r and glenohumeral joint spaces appear within normal limits. The visualized ribs are intact. Overlyi ng clothing material is present. IMPRESSION: There is no acute fracture or dislocation in the left shoulder.
--- NOTE | 2021-12-28 15:35 | ED ---
General Adult HPI - General Chief complaint: Trauma Stated complaint: Fall Time Seen by Provider: 12/28/21 14:04 Source: patient, RN notes reviewed, old records reviewed Mode of arrival: ambulatory Limitations: no limitations - History of Present Illness Initial comments: 41-year-old female presents status post fall. Patient states she was carrying laundry basket down stairs, tripped and fell down between 5 and 6 steps. There is no significant head trauma. Patient is on anticoagulation secondary to previous history of pulmonary embolism. She is complaining of left shoulder pain and left knee pain. No focal neurological complaints. No central chest pain. - Related Data Home Medications Medication Instructions Recorded Confirmed Albuterol Sulfate [Proair Hfa] 2 puff INHALATION RT-Q6H PRN 08/30/21 08/30/21 Apixaban [Eliquis] 2.5 mg PO BID 08/30/21 08/30/21 Ferrous Sulfate [Feosol] 325 mg PO Q72H 08/30/21 08/30/21 Lisinopril-Hctz 10-12.5 mg 1 tab PO DAILY 08/30/21 08/30/21 [Zestoretic 10-12.5] Allergies Allergy/AdvReac Type Severity Reaction Status Date / Time codeine Allergy Rash/Hives Verified 12/28/21 13:55 Influenza Virus Vaccines Allergy Rash/Hives Verified 12/28/21 13:55 Sulfa (Sulfonamide Allergy Unknown Verified 12/28/21 13:55 Antibiotics) Review of Systems ROS Statement: Those systems with pertinent positive or pertinent negative responses have been documented in the HPI. ROS Other: All systems not noted in ROS Statement are negative. Past Medical History Past Medical History: Hyperlipidemia, Hypertension, Pulmonary Embolus (PE) History of Any Multi-Drug Resistant Organisms: None Reported Past Surgical History: Section Additional Past Surgical History / Comment(s): Eye surgery Past Psychological History: Anxiety Smoking Status: Never smoker Past Alcohol Use History: Occasional Past Drug Use History: None Reported General Exam Limitations: no limitations General appearance: alert, in no apparent distress Head exam: Present: atraumatic, normocephalic Eye exam: Present: normal appearance, PERRL ENT exam: Present: normal exam Neck exam: Present: normal inspection. Absent: tenderness, meningismus Respiratory exam: Present: normal lung sounds bilaterally. Absent: respiratory distress, wheezes Cardiovascular Exam: Present: regular rate, normal rhythm GI/Abdominal exam: Present: soft. Absent: distended, tenderness, guarding, rebound, rigid Extremities exam: Present: normal capillary refill, other (Ecchymosis over the anterior left knee and anterior left shoulder. No gross deformity.) Neurological exam: Present: alert, oriented X3, CN II-XII intact. Absent: motor sensory deficit Psychiatric exam: Present: normal affect, normal mood Skin exam: Present: warm, dry, intact. Absent: cyanosis, diaphoretic Course Vital Signs 12/28/21 13:51 Temperature 97.4 F L Pulse Rate 95 Respiratory 18 Rate Blood Pressure 164/94 O2 Sat by Pulse 100 Oximetry Medical Decision Making - Medical Decision Making 41-year-old female status post mechanical fall. I did perform head CT given that this patient is anticoagulated although she did not have a significant head trauma. This is negative for intracranial hemorrhage or mass effect. C-spine is without fracture subluxation. Chest x-ray clear without traumatic injury. She has no acute bony abdomen is the left shoulder or left knee. She is reassured and stable for discharge. She will follow-up with her primary care physician. Disposition Clinical Impression: Fall, Contusion of left knee, Contusion of left shoulder Disposition: HOME SELF-CARE Condition: Good Instructions (If sedation given, give patient instructions): Contusion in Adults (ED), Knee Pain (ED), Shoulder Sprain (ED) Is patient prescribed a controlled substance at d/c from ED?: No Referrals: Shonda Melton MD [Primary Care Provider] - 1-2 days Time of Disposition: 15:35
== END 2021-12-28 16:30 | disposition home or self-care (01) ==
LOC: EC 13:49
DX: S40.012A Contusion of left shoulder, initial encounter (principal); S80.02XA Contusion of left knee, initial encounter; I10 Essential (primary) hypertension; E78.5 Hyperlipidemia, unspecified; F41.9 Anxiety disorder, unspecified; Z86.711 Personal history of pulmonary embolism; Z79.01 Long term (current) use of anticoagulants; Z79.899 Other long term (current) drug therapy; W10.9XXA Fall (on) (from) unspecified stairs and steps, initial encounter
CPT/HCPCS: 70450; 71046; 72125; 99284

== ENCOUNTER → 2022-03-24 | Outpatient (CLI) | payer OTHER ==
[2022-03-24 14:26] LABS: HCT 39.1 % (37.2-46.3); MCH 26.9 pg (27.0-32.0); MCHC 30.7 g/dL (32.0-37.0); MCV 87.7 fL (80.0-97.0); Mean Platelet Volume 12.3 fL (9.5-12.2); NRBC Per 100 WBC 0 /100 WBCS (0.0-0.0); Platelet Count 365 X 10*3/uL (140-440); RBC 4.46 X 10*6/uL (4.10-5.20); RDW 17.1 % (11.5-14.5); WBC 8.19 X 10*3/uL (4.50-10.00)
[2022-03-24 15:59] LABS: ALT 8 U/L (8-44); AST 12 U/L (13-35); African American GFR (CKD) 124.7 (60.0-200.0); BUN/Creat Ratio 8.71 Ratio (12.00-20.00); Blood Urea Nitrogen 6.1 mg/dL (9.0-27.0); Calcium 9.9 mg/dL (8.7-10.3); Carbon Dioxide 22.1 mmol/L (20.0-27.5); Chloride 106 mmol/L (96-109); Chol/HDL Ratio 4.27 Ratio; Glucose 112 mg/dL (70-110); Non-African American GFR(CKD) 107.6 (60.0-200.0); Potassium 3.9 mmol/L (3.5-5.5); Sodium 142 mmol/L (135-145)
== END | disposition home or self-care (01) ==
LOC: LABWHC1 09:33
PROVIDERS: ATTEND Internal Medicine Cardiovascular Disease
DX: E78.2 Mixed hyperlipidemia (principal)
CPT/HCPCS: 36415; 80048; 80061; 84443; 84450; 84460; 85027

== ENCOUNTER 2022-03-30 20:17 | Inpatient (IN) | payer MEDICAID, OTHER ==
[2022-03-30] MEDS ORDERED: SODIUM CHLORIDE 0.9% 1,000 ML IV STA (21:04)
[2022-03-30] MEDS ORDERED: NITROGLYCERIN SL TABS 0.4 MG TAB SUBLINGUAL STA (21:04)
[2022-03-30] MEDS ORDERED: ONDANSETRON 4 MG/2 ML VIAL IVP STA (21:04)
[2022-03-30 21:40] LABS: Basophils # (A) 0.1 k/uL (0-0.2); Basophils % (A) 1 %; Eosinophils # (A) 0.2 k/uL (0-0.7); Eosinophils % (A) 2 %; HCT 34.4 % (34.0-46.0); HGB 11.4 gm/dL (11.4-16.0); Lymphocytes # (A) 2.4 k/uL (1.0-4.8); Lymphocytes % (A) 26 %; MCH 28.1 pg (25.0-35.0); MCHC 33.2 g/dL (31.0-37.0); MCV 84.7 fL (80.0-100.0); Mean Platelet Volume 8.5; Monocytes # (A) 0.3 k/uL (0-1.0); Monocytes % (A) 3 %; Neutrophils % (A) 66 %; Platelet Count 383 k/uL (150-450); RBC 4.07 m/uL (3.80-5.40); RDW 15.9 % (11.5-15.5); WBC 9.1 k/uL (3.8-10.6)
[2022-03-30 21:54] LABS: Partial Thromboplastin Time 24.5 sec (22.0-30.0); Prothrombin Time 10.9 sec (9.0-12.0)
--- NOTE | 2022-03-30 22:20 | ED ---
Chest Pain HPI - General Chief Complaint: Chest Pain Stated Complaint: Chest pain,L arm numbness Time Seen by Provider: 03/30/22 20:47 Source: patient Mode of arrival: ambulatory Limitations: no limitations - History of Present Illness Initial Comments: Patient is a 41-year-old female with a past medical history of hypertension, hyperlipidemia, and pulmonary embolism currently on Elliquis who presents to the emergency department with a chief complaint of chest pain. Patient states she has been following [facility] Garcia. States over the past few months she has had intermittent episodes where she feels like her heart is fluttering which is accompanied by chest pain and shortness of breath. Describes the chest pain as a cramping in the middle/left side of her chest with radiation to the left shoulder. Patient states her episode today started 1-2 hours ago. States today's episode is different because it is accompanied by left arm numbness/tingling, nausea, and sweating. Patient feels short of breath at rest. She denies history of heart attack and arrhythmia. States her cardiac family history includes her mother who has hypertension and had a heart attack at age greater >40. Denies tobacco use. Denies fever, chills, abdominal pain, vomiting, leg pain, leg swelling. Does mention 2 episodes of diarrhea that began when the chest pain started, nonbloody, as well as cramping of the left heel. States she has an appointment with Dr. Garcia for a stress test next week. - Related Data Home Medications Medication Instructions Recorded Confirmed Albuterol Sulfate [Proair Hfa] 2 puff INHALATION RT-Q6H PRN 08/30/21 03/30/22 Apixaban [Eliquis] 2.5 mg PO BID 08/30/21 03/30/22 Ferrous Sulfate [Feosol] 325 mg PO DAILY 08/30/21 03/30/22 Lisinopril-Hctz 10-12.5 mg 1 tab PO DAILY 08/30/21 03/30/22 [Zestoretic 10-12.5] Budesonide-Formot 160-4.5 Mcg 2 puff INHALATION RT-BID 03/30/22 03/30/22 [Symbicort 160-4.5 Mcg Inhaler] Cyanocobalamin (Vitamin B-12) 1,000 mcg PO DAILY 03/30/22 03/30/22 [Vitamin B-12] Ergocalciferol (Vitamin D2) 1,250 mcg PO Q7D 03/30/22 03/30/22 [Drisdol (50,000 Iu)] Sennosides [Senokot] 17.2 mg PO HS PRN 03/30/22 03/30/22 Allergies Allergy/AdvReac Type Severity Reaction Status Date / Time codeine Allergy Rash/Hives Verified 03/30/22 22:03 Influenza Virus Vaccines Allergy Rash/Hives Verified 03/30/22 22:03 Sulfa (Sulfonamide Allergy Unknown Verified 03/30/22 22:03 Antibiotics) Review of Systems ROS Statement: Those systems with pertinent positive or pertinent negative responses have been documented in the HPI. ROS Other: All systems not noted in ROS Statement are negative. Past Medical History Past Medical History: Hyperlipidemia, Hypertension, Pulmonary Embolus (PE) History of Any Multi-Drug Resistant Organisms: None Reported Past Surgical History: Section Additional Past Surgical History / Comment(s): Eye surgery Past Psychological History: Anxiety Smoking Status: Never smoker Past Alcohol Use History: Occasional Past Drug Use History: None Reported General Exam Limitations: no limitations General appearance: alert, in no apparent distress Eye exam: Present: normal appearance, PERRL, EOMI. Absent: scleral icterus, conjunctival injection, periorbital swelling Neck exam: Present: normal inspection. Absent: tenderness, meningismus, lymphadenopathy Respiratory exam: Present: normal lung sounds bilaterally, chest wall tenderness (lower sternum ). Absent: respiratory distress, wheezes, rales, rhonchi, stridor Cardiovascular Exam: Present: regular rate, normal rhythm, normal heart sounds. Absent: systolic murmur, diastolic murmur, rubs, gallop, clicks GI/Abdominal exam: Present: soft, normal bowel sounds. Absent: distended, tenderness, guarding, rebound, rigid Neurological exam: Present: alert, oriented X3, CN II-XII intact Psychiatric exam: Present: normal affect, normal mood Skin exam: Present: warm, dry, intact, normal color. Absent: rash Course Vital Signs 03/30/22 03/30/22 03/30/22 20:24 21:43 23:00 Temperature 98.3 F Pulse Rate 86 79 72 Respiratory 20 18 16 Rate Blood Pressure 125/77 130/76 124/68 O2 Sat by Pulse 97 97 95 Oximetry Chest Pain MDM - MDM This is a 41-year-old female who presents for evaluation of chest pain. Thorough history and examination were performed. Patient is well-appearing and in no apparent distress. Heart rate is regular with normal rhythm. Chest pain is reproducible with palpation of the lower sternum. Patient has a decent cardiac history as well as some family history of cardiac disease. EKG shows normal sinus rhythm without ST segment or T-wave abnormalities. Chest x-ray is negative for acute process. Patient given 1 dose of nitroglycerin for chest pain. On reevaluation patient states her chest pain has improved however states she is continuously waking up from sleep due to her heart fluttering. Laboratory studies were obtained and significant for very low potassium at 2.6, very low calcium of 5.7, and low magnesium at 1.3. Troponin and d-dimer are within normal limits. Potassium, calcium, and magnesium supplementation initiated. During my evaluation patient did have left calf tenderness. Venous Doppler of the left lower extremity was negative for DVT. Case discussed with Angelika Sahni NP. Patient will be admitted to her service with cardiology consult for further evaluation and management. Results discussed with patient who verbalizes understanding and is agreeable to this plan. Patient admitted in stable condition. Dr. Vasquez is my attending. Disposition Clinical Impression: Hypokalemia, Hypocalcemia, Hypomagnesemia, Chest pain, Shortness of breath Disposition: ADMITTED IP TO THIS [facility] Condition: Fair Referrals: Shonda Melton MD [Primary Care Provider] - 1-2 days Decision Time: 23:53
--- NOTE | 2022-03-30 22:31 | US ---
EXAMINATION TYPE: US venous doppler duplex LE LT DATE OF EXAM: 03/30/2022 10:02 PM COMPARISON: NONE CLINICAL HISTORY: calf tenderness. left leg pain. patient on blood thinner. history of PE SIDE PERFORMED: left TECHNIQUE: The lower extremity deep venous system is examined utilizing real time linear array sonog carol with graded compression, doppler sonography and color-flow sonography. VESSELS IMAGED: Common Femoral Vein Deep Femoral Vein Greater Saphenous Vein * Femoral Vein Popliteal Vein Small Saphenous Vein * Proximal Calf Veins (* superficial vessels) Left Leg: no evidence of DVT IMPRESSION: No evidence of deep vein thrombosis in the left leg.
[2022-03-30 22:42] LABS: ALT 7 U/L (4-34); AST 11 U/L (14-36); African American GFR (CKD) >90 (>60 ml/min/1.73 sqM); Albumin 2.3 g/dL (3.5-5.0); Alkaline Phosphatase 49 U/L (38-126); Anion Gap 5 mmol/L; Blood Urea Nitrogen 7 mg/dL (7-17); Carbon Dioxide 17 mmol/L (22-30); Chloride 117 mmol/L (98-107); Glucose 94 mg/dL (74-99); Magnesium 1.3 mg/dL (1.6-2.3); Non-African American GFR(CKD) >90 (>60 ml/min/1.73 sqM); Sodium 139 mmol/L (137-145); Total Bilirubin <0.1 mg/dL (0.2-1.3); Total Protein 4.3 g/dL (6.3-8.2)
--- NOTE | 2022-03-30 22:47 | XR ---
EXAMINATION TYPE: XR chest 2V DATE OF EXAM: 03/30/2022 COMPARISON: 12/28/2021 HISTORY: Wrist pain TECHNIQUE: FINDINGS: Heart and mediastinum are normal. Lungs are clear. Diaphragm is normal. Bony thorax is norm al. IMPRESSION: Normal chest. No change.
[2022-03-30 22:52] LABS: Calcium 5.7 mg/dL (8.4-10.2); Potassium 2.6 mmol/L (3.5-5.1)
[2022-03-30] MEDS ORDERED: CALCIUM GLUCONATE IN NACL 1 GM in SALINE 1 100ML.BAG IVPB ONE (23:12)
[2022-03-30] MEDS ORDERED: POTASSIUM CHLORIDE 10 MEQ in WATER FOR INJECTION 1 100ML.BAG IVPB STA (23:16)
[2022-03-30] MEDS ORDERED: POTASSIUM CHLORIDE 20 MEQ in WATER FOR INJECTION 1 100ML.BAG IVPB STA (23:18)
[2022-03-30] MEDS ORDERED: MAGNESIUM OXIDE 400 MG TAB PO STA (23:18)
[2022-03-30] MEDS ORDERED: POTASSIUM CHLORIDE ER 20 MEQ TAB.ER PO STA (23:18)
[2022-03-30] MEDS ORDERED: ONDANSETRON 4 MG/2 ML VIAL IVP PRN (23:40)
[2022-03-30] MEDS: SODIUM CHLORIDE 0.9% 1,000 ML IV SCH (23:48)
[2022-03-31] MEDS: KETOROLAC 15 MG/ML 1 ML VIAL IVP PRN ×2 (01:11→20:08)
[2022-03-31 06:02] LABS: Anisocytosis Slight; Basophils # (A) 0.1 k/uL (0-0.2); Basophils % (A) 1 %; Eosinophils # (A) 0.2 k/uL (0-0.7); Eosinophils % (A) 2 %; HCT 31.9 % (34.0-46.0); HGB 10.7 gm/dL (11.4-16.0); Lymphocytes # (A) 2.6 k/uL (1.0-4.8); Lymphocytes % (A) 38 %; MCH 29.1 pg (25.0-35.0); MCHC 33.6 g/dL (31.0-37.0); MCV 86.6 fL (80.0-100.0); Mean Platelet Volume 8.7; Monocytes # (A) 0.3 k/uL (0-1.0); Monocytes % (A) 4 %; Neutrophils # (A) 3.7 k/uL (1.3-7.7); Neutrophils % (A) 53 %; Platelet Count 343 k/uL (150-450); RBC 3.69 m/uL (3.80-5.40); RDW 16.1 % (11.5-15.5); WBC 6.9 k/uL (3.8-10.6)
[2022-03-31 06:14] LABS: HCG,Qualitative Serum Not Detected
[2022-03-31 06:31] LABS: ALT 10 U/L (4-34); AST 13 U/L (14-36); African American GFR (CKD) >90 (>60 ml/min/1.73 sqM); Albumin 3.4 g/dL (3.5-5.0); Alkaline Phosphatase 59 U/L (38-126); Anion Gap 6 mmol/L; Bilirubin, Delta 0.1 mg/dL (0.0-0.2); Blood Urea Nitrogen 8 mg/dL (7-17); Calcium 8.3 mg/dL (8.4-10.2); Carbon Dioxide 24 mmol/L (22-30); Chloride 107 mmol/L (98-107); Glucose 112 mg/dL (74-99); Non-African American GFR(CKD) >90 (>60 ml/min/1.73 sqM); Potassium 4.3 mmol/L (3.5-5.1); Sodium 137 mmol/L (137-145); Total Bilirubin 0.1 mg/dL (0.2-1.3); Total Protein 5.7 g/dL (6.3-8.2)
[2022-03-31] MEDS ORDERED: SENNOSIDES 8.6 MG TAB PO PRN (07:04)
[2022-03-31] MEDS ORDERED: ALBUTEROL NEBULIZED 2.5 MG/3 ML INHALATION PRN (07:04)
[2022-03-31] MEDS: SODIUM CHLORIDE 0.9% 1,000 ML IV SCH ×3 (08:18→10:57)
[2022-03-31] MEDS: lisinopriL 10 MG TAB PO SCH (08:18)
[2022-03-31] MEDS: FERROUS SULFATE 325 MG TAB PO SCH (08:18)
[2022-03-31] MEDS: APIXABAN 2.5 MG TABLET PO SCH ×2 (08:18→20:08)
[2022-03-31] MEDS: SYMBICORT 160-4.5 MCG INHALER INHALATION SCH ×2 (08:18→20:03)
[2022-03-31] MEDS: CYANOCOBALAMIN 500 MCG TAB PO SCH (08:18)
--- NOTE | 2022-03-31 08:43 | P.HPIM ---
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 Her PCP Dr. cabrera/Kimberlee Lombardo. She presents because of ongoing symptoms of chest pressure in the middle of the chest radiating to the back reflux N about 7/10 when she came in and currently 3/10:00 pressure associated with some dyspnea and dry cough. Her symptoms has been going on for about 3 months over yesterday when she was going to work as she works has not shift her nurse asked her to come to the hospital. Also yesterday and this morning she started having some loose stool and diarrhea once last time and wants this morning, was some area umbilical abdominal cramps about 60/10, there is no blood in her stool. No problem with her menstrual cycle but has been little heavy for more than a year while she is on liquids. She's also registering in She denies smoking, alcohol or illicit drug Labs including CBC, INR, liver enzymes are unremarkable. Sodium normal but potassium low at 2.6, calcium low at 5.7, ionized calcium was normal for 0.6. D-dimer is negative at 0.31. Troponin negative less than 0.012. EKG showed normal sinus rhythm at [address]-T changes Chest x-ray: No acute process. Venous Doppler is negative for DVT in the left leg. Review of Systems Review of systems CONSTITUTIONAL: No fever, no malaise, no fatigue. HEENT: No recent visual problems or hearing problems. Denied any sore throat. CARDIOVASCULAR: No orthopnea, PND, no palpitations, no syncope. PULMONARY: No chest wall tenderness, no hemoptysis. GASTROINTESTINAL: no nausea, no vomiting, Normoactive bowel sounds. NEUROLOGICAL: No headaches, no weakness, no numbness. HEMATOLOGICAL: Denies any bleeding or petechiae. GENITOURINARY: Denies any burning micturition, frequency, or urgency. MUSCULOSKELETAL/RHEUMATOLOGICAL: Denies any joint pain, swelling, or any muscle pain. ENDOCRINE: Denies any polyuria or polydipsia. Past Medical History Past Medical History: Hyperlipidemia, Hypertension, Pulmonary Embolus (PE) Additional Past Medical History / Comment(s): PE 2016, Heart attack 3 weeks ago per patient Last Myocardial Infarction Date:: 3 weeks ago History of Any Multi-Drug Resistant Organisms: None Reported Past Surgical History: Section Additional Past Surgical History / Comment(s): Eye surgery Past Psychological History: Anxiety Smoking Status: Never smoker Past Alcohol Use History: Occasional Past Drug Use History: None Reported Medications and Allergies Home Medications Medication Instructions Recorded Confirmed Type Albuterol Sulfate [Proair Hfa] 2 puff INHALATION RT-Q6H PRN 08/30/21 03/30/22 History Apixaban [Eliquis] 2.5 mg PO BID 08/30/21 03/30/22 History Ferrous Sulfate [Feosol] 325 mg PO DAILY 08/30/21 03/30/22 History Lisinopril-Hctz 10-12.5 mg 1 tab PO DAILY 08/30/21 03/30/22 History [Zestoretic 10-12.5] Budesonide-Formot 160-4.5 Mcg 2 puff INHALATION RT-BID 03/30/22 03/30/22 History [Symbicort 160-4.5 Mcg Inhaler] Cyanocobalamin (Vitamin B-12) 1,000 mcg PO DAILY 03/30/22 03/30/22 History [Vitamin B-12] Ergocalciferol (Vitamin D2) 1,250 mcg PO Q7D 03/30/22 03/30/22 History [Drisdol (50,000 Iu)] Sennosides [Senokot] 17.2 mg PO HS PRN 03/30/22 03/30/22 History Allergies Allergy/AdvReac Type Severity Reaction Status Date / Time codeine Allergy Rash/Hives Verified 03/30/22 22:03 Influenza Virus Vaccines Allergy Rash/Hives Verified 03/30/22 22:03 Sulfa (Sulfonamide Allergy Unknown Verified 03/30/22 22:03 Antibiotics) Physical Exam Vitals: Vital Signs Temp Pulse Pulse Resp BP BP Pulse Ox 03/31/22 08:00 98.1 F 78 18 118/66 97 03/31/22 07:46 68 03/31/22 04:00 68 16 128/82 97 03/31/22 00:00 98.2 F 71 16 135/87 98 03/30/22 23:00 72 16 124/68 95 03/30/22 21:43 79 18 130/76 97 03/30/22 20:24 98.3 F 86 20 125/77 97 Intake and Output 03/30/22 03/31/22 03/31/22 22:59 06:59 14:59 Intake Total 785 Balance 785 Intake: Intake, IV Titration 300 Amount Calcium Gluconate in NaCl 100 1 gm In Saline 1 100ml. bag @ 100 mls/hr IVPB ONCE ONE Rx#:[id number] Potassium Chloride 10 meq 100 In Water For Injection 1 100ml.bag @ 100 mls/hr IVPB ONCE STA Rx#: [id number] Potassium Chloride 20 meq 100 In Water For Injection 1 100ml.bag @ 50 mls/hr IVPB ONCE STA Rx#: [id number] Oral 485 Other: Voiding Method Toilet # Voids 1 Weight 98.883 kg 98.883 kg -GENERAL: The patient is alert and oriented x3, not in any acute distress. Obese HEENT: Pupils are round and equally reacting to light. EOMI. No scleral icterus. No conjunctival pallor. Normocephalic, atraumatic. No pharyngeal erythema. No thyromegaly. CARDIOVASCULAR: S1 and S2 present. No murmurs, rubs, or gallops. PULMONARY: Chest is clear to auscultation, no wheezing or crackles. ABDOMEN: Soft, nontender, nondistended, normoactive bowel sounds. No palpable organomegaly. MUSCULOSKELETAL: No joint swelling or deformity. EXTREMITIES: No cyanosis, clubbing, or pedal edema. NEUROLOGICAL: Gross neurological examination did not reveal any focal deficits. SKIN: No rashes. no petechiae. Results CBC & Chem 7: 03/31/22 05:17 03/31/22 05:17 Labs: Abnormal Lab Results - Last 24 Hours (Table) 03/30/22 03/30/22 03/31/22 Range/Units 21:29 22:20 05:17 RBC 3.69 L (3.80-5.40) m/uL Hgb 10.7 L (11.4-16.0) gm/dL Hct 31.9 L (34.0-46.0) % RDW 15.9 H 16.1 H (11.5-15.5) % Potassium 2.6 L* (3.5-5.1) mmol/L Chloride 117 H (98-107) mmol/L Carbon Dioxide 17 L (22-30) mmol/L Creatinine 0.40 L (0.52-1.04) mg/dL Glucose (74-99) mg/dL Calcium 5.7 L* (8.4-10.2) mg/dL Magnesium 1.3 L (1.6-2.3) mg/dL Total Bilirubin <0.1 L (0.2-1.3) mg/dL AST 11 L (14-36) U/L Total Protein 4.3 L (6.3-8.2) g/dL Albumin 2.3 L (3.5-5.0) g/dL 03/31/22 Range/Units 05:17 RBC (3.80-5.40) m/uL Hgb (11.4-16.0) gm/dL Hct (34.0-46.0) % RDW (11.5-15.5) % Potassium (3.5-5.1) mmol/L Chloride (98-107) mmol/L Carbon Dioxide (22-30) mmol/L Creatinine (0.52-1.04) mg/dL Glucose 112 H (74-99) mg/dL Calcium 8.3 L (8.4-10.2) mg/dL Magnesium (1.6-2.3) mg/dL Total Bilirubin 0.1 L (0.2-1.3) mg/dL AST 13 L (14-36) U/L Total Protein 5.7 L (6.3-8.2) g/dL Albumin 3.4 L (3.5-5.0) g/dL Assessment and Plan Assessment: Severe hypokalemia and hypocalcemia secondary to diuretics Hypertension Hyperlipidemia History of pulmonary embolism on Eliquis Obesity with BMI of 34.1 Plan: This is a pleasant 41 is white female who presents with chest pain We'll do serial troponin Continue with aspirin Cardiology consult Replace electrolytes and monitor level of potassium and calcium Discontinue hydrochlorothiazideCheck for C. diff . Continue with symptomatic treatment. Resume home medication. Monitor lytes and vitals. DVT and GI prophylaxis. Further recommendations as per clinical course of the patient DVT prophylaxis: Eliquis GI Prophylaxis: Pepcid PT/OT: Pending Prognosis is guarded
--- NOTE | 2022-03-31 10:07 | P.CRDCN ---
History of Present Illness History of present illness: HISTORY OF PRESENTING ILLNESS This is a pleasant 41-year-old female past medical history significant for hypertension, hyperlipidemia, pulmonary embolism on Eliquis, family history of coronary artery disease. She follows in the office with Dr. Garcia. We have been asked to see in consultation for chest pain. Patient presents to the emergency department with complaints of palpitations as well as accompanied chest pain and shortness of breath. This has been happening off and on for a few months. Describes the chest pain as a cramping in the middle/left side of her chest. She has some radiation to the left shoulder. Episodes last less than a minute. Yesterday she also had symptoms of left arm numbness/tingling, nausea, and diaphoresis. Her symptoms are non-exertional. Yesterday it occurred when she was driving to work. She denies any history of [place], Stroke, CAD, Diabetes. Family h istory includes her mother who has hypertension and had a heart attack at age greater >40. Denies tobacco use. She has been referred to Dr. Garcia as an outpatient and had a planned stress test, echocardiogram and holter monitor. Her stress test is scheduled for this week. Patient also endorses having diarrhea as well yesterday. DIAGNOSTICS EKG reveals sinus rhythm, HR 83, no acute St-t wave abnormalities to suggest ischemia. EKG In the office 02/2022 with similar findings Telemetry tracings indicate sinus mechanism HR 70s, no arrhythmia noted. Chest xray no acute cardiopulmonary process Laboratory reviewed, troponin negative, WBC 6.9 2010.7, platelets 343, d-dimer negative, sodium 137, potassium 4.3, BUN 8, serum crit 0.6, magnesium 2.0 Current home medications include vitamin D2, vitamin B12, iron, Symbicort, lisinoprilsurgical thiazide 1012 0.5 mg daily, Eliquis 2.5 mg twice a day REVIEW OF SYSTEMS At the time of my exam her symptoms have resolved CONSTITUTIONAL: Denies fever or chills. CARDIOVASCULAR: + chest pain, Denies shortness of breath, orthopnea, PND+ palpitations. RESPIRATORY: Denies cough. GASTROINTESTINAL: Denies abdominal pain, diarrhea, constipation, nausea or vomiting. MUSCULOSKELETAL: Denies myalgias. NEUROLOGIC: Denies numbness, tingling, headache or weakness. ENDOCRINE: Denies fatigue, weight change, polydipsia or polyurina. GENITOURINARY: Denies burning, hematuria or urgency with micturation. HEMATOLOGIC:+history of anemia Denies bleeding. PHYSICAL EXAMINATION Vitals reviewed CONSTITUTIONAL: No apparent distress. HEENT: Head is normocephalic. Pupils are equal, round. Sclerae anicteric. Mucous membranes of the mouth are moist. No JVD. No carotid bruit. CHEST EXAMINATION: Lungs are clear to auscultation. No chest wall tenderness is noted on palpation or with deep breathing. HEART EXAMINATION: Regular rate and rhythm. S1, S2 heard. No murmurs, gallops or rub. ABDOMEN: Soft, nontender. Positive bowel sounds. EXTREMITIES: 2+ peripheral pulses, no lower extremity edema and no calf tenderness. SKIN: warm, dry NEUROLOGIC EXAMINATION: Patient is awake, alert and oriented x3. ASSESSMENT Chest pain, atypical, acute coronary syndrome has been ruled out Nausea, Diarrhea Hypokalemia Hypomagnesemia Hypocalcemia Hypertension Hyperlipidemia Pulmonary embolism on Eliquis Family history of coronary artery disease Obesity History Iron deficiency anemia PLAN An acute coronary event has been ruled out with no EKG evidence of ischemia and negative cardiac enzymes. Obtain 2D echocardiogram and doppler study to assess cardiac structure and function. Perform Stress Echo test to assess for stress induced cardiac ischemia tomorrow. If abnormal will consider coronary angiography. Hold hctz. Hematology recs for Eliquis dosage at 2.5, patient 41 with normal renal function Further recommendations based on clinical course. Thank you kindly for this consultation. Nurse practitioner note has been reviewed by physician. Signing provider agrees with the documented findings, assessment, and plan of care. Past Medical History Past Medical History: Hyperlipidemia, Hypertension, Pulmonary Embolus (PE) Additional Past Medical History / Comment(s): PE 2016, Heart attack 3 weeks ago per patient Last Myocardial Infarction Date:: 3 weeks ago History of Any Multi-Drug Resistant Organisms: None Reported Past Surgical History: Section Additional Past Surgical History / Comment(s): Eye surgery Past Psychological History: Anxiety Smoking Status: Never smoker Past Alcohol Use History: Occasional Past Drug Use History: None Reported Medications and Allergies Home Medications Medication Instructions Recorded Confirmed Type Albuterol Sulfate [Proair Hfa] 2 puff INHALATION RT-Q6H PRN 08/30/21 03/30/22 History Apixaban [Eliquis] 2.5 mg PO BID 08/30/21 03/30/22 History Ferrous Sulfate [Feosol] 325 mg PO DAILY 08/30/21 03/30/22 History Lisinopril-Hctz 10-12.5 mg 1 tab PO DAILY 08/30/21 03/30/22 History [Zestoretic 10-12.5] Budesonide-Formot 160-4.5 Mcg 2 puff INHALATION RT-BID 03/30/22 03/30/22 History [Symbicort 160-4.5 Mcg Inhaler] Cyanocobalamin (Vitamin B-12) 1,000 mcg PO DAILY 03/30/22 03/30/22 History [Vitamin B-12] Ergocalciferol (Vitamin D2) 1,250 mcg PO Q7D 03/30/22 03/30/22 History [Drisdol (50,000 Iu)] Sennosides [Senokot] 17.2 mg PO HS PRN 03/30/22 03/30/22 History Allergies Allergy/AdvReac Type Severity Reaction Status Date / Time codeine Allergy Rash/Hives Verified 03/30/22 22:03 Influenza Virus Vaccines Allergy Rash/Hives Verified 03/30/22 22:03 Sulfa (Sulfonamide Allergy Unknown Verified 03/30/22 22:03 Antibiotics) Physical Exam Vitals: Vital Signs Temp Pulse Pulse Resp BP BP Pulse Ox 03/31/22 04:00 68 16 128/82 97 03/31/22 00:00 98.2 F 71 16 135/87 98 03/30/22 23:00 72 16 124/68 95 03/30/22 21:43 79 18 130/76 97 03/30/22 20:24 98.3 F 86 20 125/77 97 Intake and Output 03/30/22 03/30/22 03/31/22 14:59 22:59 06:59 Intake Total 785 Balance 785 Intake: Intake, IV Titration 300 Amount Calcium Gluconate in NaCl 100 1 gm In Saline 1 100ml. bag @ 100 mls/hr IVPB ONCE ONE Rx#:[id number] Potassium Chloride 10 meq 100 In Water For Injection 1 100ml.bag @ 100 mls/hr IVPB ONCE STA Rx#: [id number] Potassium Chloride 20 meq 100 In Water For Injection 1 100ml.bag @ 50 mls/hr IVPB ONCE STA Rx#: [id number] Oral 485 Other: Voiding Method Toilet # Voids 1 Weight 98.883 kg 98.883 kg Results 03/31/22 05:17 03/31/22 05:17 Cardiac Enzymes 03/30/22 03/30/22 03/31/22 Range/Units 22:20 22:20 05:17 AST 11 L 13 L (14-36) U/L Troponin I <0.012 (0.000-0.034) ng/mL Coagulation 03/30/22 Range/Units 21:29 PT 10.9 (9.0-12.0) sec APTT 24.5 (22.0-30.0) sec CBC 03/30/22 03/31/22 Range/Units 21:29 05:17 WBC 9.1 6.9 (3.8-10.6) k/uL RBC 4.07 3.69 L (3.80-5.40) m/uL Hgb 11.4 10.7 L (11.4-16.0) gm/dL Hct 34.4 31.9 L (34.0-46.0) % Plt Count 383 343 (150-450) k/uL Comprehensive Metabolic Panel 03/30/22 03/31/22 Range/Units 22:20 05:17 Sodium 139 137 (137-145) mmol/L Potassium 2.6 L* 4.3 (3.5-5.1) mmol/L Chloride 117 H 107 (98-107) mmol/L Carbon Dioxide 17 L 24 (22-30) mmol/L BUN 7 8 (7-17) mg/dL Creatinine 0.40 L 0.65 (0.52-1.04) mg/dL Glucose 94 112 H (74-99) mg/dL Calcium 5.7 L* 8.3 L (8.4-10.2) mg/dL Unconjugated Bilirubin 0.0 (0.0-1.1) mg/dL AST 11 L 13 L (14-36) U/L ALT 7 10 (4-34) U/L Alkaline Phosphatase 49 59 (38-126) U/L Total Protein 4.3 L 5.7 L (6.3-8.2) g/dL Albumin 2.3 L 3.4 L (3.5-5.0) g/dL Current Medications Generic Name Dose Route Start Last Admin Trade Name Freq PRN Reason Stop Dose Admin Sodium Chloride 1,000 mls @ 130 mls/hr 03/30/22 23:45 03/30/22 23:48 Saline 0.9% IV 130 mls/hr .[id number] FELICIA Administration Ketorolac Tromethamine 15 mg 03/30/22 23:40 03/31/22 01:11 Ketorolac 15 Mg/Ml 1 Ml Vial IVP 04/02/22 23:41 15 mg Q6HR PRN Administration Moderate Pain Ondansetron HCl 4 mg 03/30/22 23:40 Ondansetron 4 Mg/2 Ml Vial IVP Q8HR PRN Nausea And Vomiting Intake and Output 03/30/22 03/30/22 03/31/22 14:59 22:59 06:59 Intake Total 785 Balance 785 Intake: Intake, IV Titration 300 Amount Calcium Gluconate in NaCl 100 1 gm In Saline 1 100ml. bag @ 100 mls/hr IVPB ONCE ONE Rx#:[id number] Potassium Chloride 10 meq 100 In Water For Injection 1 100ml.bag @ 100 mls/hr IVPB ONCE STA Rx#: [id number] Potassium Chloride 20 meq 100 In Water For Injection 1 100ml.bag @ 50 mls/hr IVPB ONCE STA Rx#: [id number] Oral 485 Other: Voiding Method Toilet # Voids 1 Weight 98.883 kg 98.883 kg Patient Weight 03/31/22 06:59 Weight 98.883 kg 03/31/22 05:17 03/31/22 05:17
[2022-04-01] MEDS: SODIUM CHLORIDE 0.9% 1,000 ML IV SCH (04:37)
[2022-04-01 07:56] LABS: African American GFR (CKD) >90 (>60 ml/min/1.73 sqM); Anion Gap 7 mmol/L; Blood Urea Nitrogen 8 mg/dL (7-17); Calcium 8.4 mg/dL (8.4-10.2); Carbon Dioxide 22 mmol/L (22-30); Chloride 108 mmol/L (98-107); Glucose 100 mg/dL (74-99); Non-African American GFR(CKD) >90 (>60 ml/min/1.73 sqM); Potassium 4.4 mmol/L (3.5-5.1); Sodium 137 mmol/L (137-145)
[2022-04-01 08:15] LABS: Anisocytosis Slight; Basophils % (A) 0 %; Eosinophils # (A) 0.2 k/uL (0-0.7); Eosinophils % (A) 2 %; HCT 34.6 % (34.0-46.0); HGB 11.3 gm/dL (11.4-16.0); Hypochromasia Slight; Lymphocytes # (A) 2.3 k/uL (1.0-4.8); Lymphocytes % (A) 34 %; MCHC 32.8 g/dL (31.0-37.0); MCV 88.3 fL (80.0-100.0); Mean Platelet Volume 9.9; Monocytes # (A) 0.2 k/uL (0-1.0); Monocytes % (A) 3 %; Neutrophils % (A) 59 %; Platelet Count 333 k/uL (150-450); RBC 3.92 m/uL (3.80-5.40); RDW 16.5 % (11.5-15.5); WBC 6.8 k/uL (3.8-10.6)
[2022-04-01] MEDS: SYMBICORT 160-4.5 MCG INHALER INHALATION SCH ×2 (08:18→20:01)
--- NOTE | 2022-04-01 11:28 | CT ---
EXAMINATION TYPE: CT brain wo con DATE OF EXAM: 04/01/2022 COMPARISON: December 28, 2021 HISTORY: Left side numbness CT DLP: 1081.[address] of the brain was performed. The ventricles, basal cisterns and sulci overlying the cerebral convexities demonstrate a normal appe arance. There is no evidence for intracranial hemorrhage or sulcal effacement. No mass effects are seen. Osseous calvarium is intact. If symptoms persist consider MRI as clinically warranted. IMPRESSION: 1. No acute intracranial process is seen at this time.
[2022-04-01] MEDS: lisinopriL 10 MG TAB PO SCH (11:36)
[2022-04-01] MEDS: APIXABAN 2.5 MG TABLET PO SCH ×2 (11:37→20:38)
[2022-04-01] MEDS: CYANOCOBALAMIN 500 MCG TAB PO SCH (11:37)
[2022-04-01] MEDS: FERROUS SULFATE 325 MG TAB PO SCH (11:37)
--- NOTE | 2022-04-01 11:39 | P.PN ---
Subjective This is a pleasant 41-year-old female past medical history significant for hypertension, hyperlipidemia, pulmonary embolism on Eliquis, family history of coronary artery disease. She follows in the office with Dr. Garcia. We have been asked to see in consultation for chest pain. Patient presents to the emergency department with complaints of palpitations as well as accompanied chest pain and shortness of breath. This has been happening off and on for a few months. Describes the chest pain as a cramping in the middle/left side of her chest. She has some radiation to the left shoulder. Episodes last less than a minute. Yesterday she also had symptoms of left arm numbness/tingling, nausea, and diaphoresis. Her symptoms are non-exertional. Yesterday it occurred when she was driving to work. She denies any history of [place], Stroke, CAD, Diabetes. Family history includes her mother who has hypertension and had a heart attack at age greater >40. Denies tobacco use. She has been referred to Dr. Garcia as an outpatient and had a planned stress test, echocardiogram and holter monitor. Her stress test is scheduled for this week. Patient also endorses having diarrhea as well yesterday. DIAGNOSTICS EKG reveals sinus rhythm, HR 83, no acute St-t wave abnormalities to suggest ischemia. EKG In the office 02/2022 with similar findings Telemetry tracings indicate sinus mechanism HR 70s, no arrhythmia noted. Chest xray no acute cardiopulmonary process Laboratory reviewed, troponin negative, WBC 6.9 2010.7, platelets 343, d-dimer negative, sodium 137, potassium 4.3, BUN 8, serum crit 0.6, magnesium 2.0 Current home medications include vitamin D2, vitamin B12, iron, Symbicort, lisinoprilsurgical thiazide 1012 0.5 mg daily, Eliquis 2.5 mg twice a day 04/01/2022 Patient seen and examined at bedside, no acute distress. No further chest pain. Vital signs stable. Labs reviewed. PHYSICAL EXAMINATION Vitals reviewed CONSTITUTIONAL: No apparent distress. HEENT: Neck Supple. No JVD. No carotid bruit. CHEST EXAMINATION: Lungs are clear to auscultation. No chest wall tenderness is noted on palpation or with deep breathing. HEART EXAMINATION: Regular rate and rhythm. S1, S2 heard. No murmurs, gallops or rub. ABDOMEN: Soft, nontender. Positive bowel sounds. EXTREMITIES: 2+ peripheral pulses, no lower extremity edema and no calf tend erness. SKIN: warm, dry NEUROLOGIC EXAMINATION: Patient is awake, alert and oriented x3. ASSESSMENT Chest pain, atypical, acute coronary syndrome has been ruled out Nausea, Diarrhea Hypokalemia Hypomagnesemia Hypocalcemia Hypertension Hyperlipidemia Pulmonary embolism on Eliquis Family history of coronary artery disease Obesity History Iron deficiency anemia PLAN An acute coronary event has been ruled out with no EKG evidence of ischemia and negative cardiac enzymes. Obtain 2D echocardiogram and doppler study to assess cardiac structure and function. Perform Stress Echo test to assess for stress induced cardiac ischemia today. If abnormal will consider coronary angiography. Hold hctz. Hematology recs for Eliquis dosage at 2.5, patient 41 with normal renal function If patients stress test is negative, no further inpatient workup from a cardiology perspective and follow up outpatient with Dr. Garcia. Nurse practitioner note has been reviewed by physician. Signing provider agrees with the documented findings, assessment, and plan of care. Objective - Vital Signs Vital signs: Vital Signs Temp 98.3 F 04/01/22 08:27 Pulse 66 04/01/22 08:27 Resp 16 04/01/22 08:27 BP 136/83 04/01/22 08:27 Pulse Ox 99 04/01/22 08:27 FiO2 Intake & Output 03/31/22 04/01/22 04/01/22 18:59 06:59 18:59 Intake Total 360 Balance 360 Intake: Oral 360 Other: Voiding Method Toilet # Voids 2 - Labs CBC & Chem 7: 04/01/22 06:28 04/01/22 06:28 Labs: Abnormal Lab Results - Last 24 Hours (Table) 04/01/22 04/01/22 Range/Units 06:28 06:28 Hgb 11.3 L (11.4-16.0) gm/dL RDW 16.5 H (11.5-15.5) % Chloride 108 H (98-107) mmol/L Glucose 100 H (74-99) mg/dL
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
--- NOTE | 2022-04-01 12:52 | CA ---
Transthoracic Echo Report Name: Ce Friedman Age: 41 Gender: F : 1980 Exam Date: 04/01/2022 10:50 Exam Location: [place] [facility] Ht (in): 67 Wt (lb): 219 Ordering Physician: Zoë Chinchilla MD ([id number]) Attending/Referring Phys: Skip Operator Mayra Sinha RDCS Procedure CPT: Indications: CP Cardiac Hx: Technical Quality: Good Contrast 1: Total Dose (mL): Contrast 2: Total Dose (mL): MEASUREMENTS (Male / Female) Normal Values 2D ECHO LV Diastolic Diameter PLAX 4.9 cm 4.2 - 5.9 / 3.9 - 5.3 cm LV Systolic Diameter PLAX 3.2 cm IVS Diastolic Thickness 1.2 cm 0.6 - 1.0 / 0.6 - 0.9 cm LVPW Diastolic Thickness 1.3 cm 0.6 - 1.0 / 0.6 - 0.9 cm LV Relative Wall Thickness 0.5 RV Internal Dim ED PLAX 2.4 cm M-MODE Aortic Root Diameter MM 3.1 cm LA Systolic Diameter MM 3.1 cm LA Ao Ratio MM 1.0 MV E Point Septal Separation 0.4 cm AV Cusp Separation MM 2.1 cm DOPPLER AV Peak Velocity 159.9 cm/s AV Peak Gradient 10.2 mmHg MV Area PHT 5.2 cm??? MR Peak Velocity 269.3 cm/s MR Peak Gradient 29.0 mmHg Mitral E Point Velocity 117.8 cm/s Mitral A Point Velocity 77.5 cm/s Mitral E to A Ratio 1.5 MV Deceleration Time 145.1 ms MV E' Velocity 12.9 cm/s Mitral E to MV E' Ratio 9.1 TR Peak Velocity 184.8 cm/s TR Peak Gradient 13.7 mmHg Right Ventricular Systolic Press 18.7 mmHg FINDINGS Left Ventricle Mildly increased septal wall thickness. Mildly increased posterior wall thickness. Left ventricular ejection fraction is estimated at 55-60_ %. Left ventricular cavity size normal. Right Ventricle The right ventricle is normal in size and function. Right Atrium The right atrium is normal in size. Left Atrium The left atrium is normal in size. Mitral Valve Structurally normal mitral valve without significant stenosis or prolapse. There is trace mitral regurgitation. Aortic Valve Structurally normal aortic valve without significant sclerosis or stenosis. There is no aortic regurgitation. Tricuspid Valve Structurally normal tricuspid valve without significant stenosis. Pulmonary artery systolic pressure is normal. Trace tricuspid regurgitation. Pulmonic Valve Structurally normal pulmonic valve without significant stenosis. There is no pulmonic regurgitation. Pericardium Normal pericardium without effusion. Aorta Normal aortic root dimension. CONCLUSIONS Normal left ventricular dimension and systolic function Previewed by: Dr. Dav Pulido MD (Electronically Signed) Final Date: 01 April 2022 12:51
--- NOTE | 2022-04-01 13:03 | CA ---
Stress Echo Report Ce Friedman Age: 41 Gender: F : 1980 Exam Date: 04/01/2022 10:37 Exam Location: [place] [facility] Ht (in): 67 Wt (lb): 219 Ordering Physician: Zoë Chinchilla MD ([id number]) Referring Physician: MUSA,, Cnc Manufacturing Engineer: TYE Technologist Procedure CPT: Indication: Chest Pain ICD-9 Codes: Rhythm: Patient History: Cardiac Medications: Medications in past 24 hours: Contrast: Definity Stress Results Protocol: Jovanni Total dose(mL): Exercise Duration (min:sec): Max ST Depression (mm): Angina Score: Scruggs Score: METS: 7.1 Resting HR: 68 Resting BP: 123 / 65 Peak HR: 160 Peak BP: 174 / 68 Max Predicted HR: 179 89 % Max Predicted HR Target HR: 152 Double Product: [id number] Stress Summary: BP Response: Reason for Termination: Reached target heart rate or work-load Cardiac Symptoms: Chest pain #4 before stress increasing to #6 during stress with shortness of breath. Better post exercise ECG Analysis Resting ECG: Stress ECG: Arrhythmia: Echo Analysis Resting Echo: Peak Echo Analysis: MEASUREMENTS (Male/Female) Normal Values CONCLUSIONS Good exercise tolerance Normal EKG in response to exercise Normal echocardiogram in response to exercise Dr. Dav Pulido MD (Electronically Signed) Final Date: 01 April 2022 13:03
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
[2022-04-01 16:13] LABS: Appearance,Urine Clear (Clear); Bacteria,Urine Rare /hpf; Bilirubin,Urine Negative (Negative); Blood,Urine Negative (Negative); Color,Urine Light Yellow; Glucose,Urine (UA) Negative (Negative); Ketones,Urine Negative (Negative); Leukocyte Esterase,Urine Small (Negative); Mucus,Urine Rare /hpf; Nitrite,Urine Negative (Negative); Protein,Urine Negative (Negative); RBC,Urine 1 /hpf (0-5); Specific Gravity,Urine 1.015 (1.001-1.035); Squamous Epithelial Cell,Urine 6 /hpf (0-4); Urobilinogen,Urine <2.0 mg/dL (<2.0); WBC,Urine 1 /hpf (0-5)
[2022-04-01 18:40] LABS: % Iron Saturation 6.21 (12.00-45.00); Ferritin 18.4 ng/mL (10.0-291.0); Iron 22 ug/dL (50-170); Rheumatoid Factor, Qnt <10 IU/mL (0-15); Total Iron Binding Capacity 354 ug/dL (228-460)
--- NOTE | 2022-04-01 19:12 | US ---
EXAMINATION TYPE: US venous doppler duplex LE RT DATE OF EXAM: 04/01/2022 6:03 PM COMPARISON: NONE CLINICAL HISTORY: Right leg pain. RLE pain; patient states she has pain in her leg from sitting for t oo long. Patient has hx of PE 2016 SIDE PERFORMED: Right TECHNIQUE: The lower extremity deep venous system is examined utilizing real time linear array sonog carol with graded compression, doppler sonography and color-flow sonography. VESSELS IMAGED: Common Femoral Vein Deep Femoral Vein Greater Saphenous Vein * Femoral Vein Popliteal Vein Small Saphenous Vein * Proximal Calf Veins (* superficial vessels) Right Leg: Negative for DVT IMPRESSION: No evidence of deep vein thrombosis in the right leg.
--- NOTE | 2022-04-01 20:10 | P.CONS ---
History of Present Illness - Reason for Consult Consult date: 04/01/22 eliquis dosage Requesting physician: Cam Sapp - Chief Complaint Chest Pain and Shortness of Breath - History of Present Illness Mrs Friedman is a 41 year old female who was diagnosed with DVT and Bilateral PE in 2016. She was seen at outside hospital and treated with warfarin for 5 years, this was changed to eliquis in the past year by block layer Dr. Taylor. She state s she had hypercoagulable work-up but was told negative. Her mother has had blood clots, follows Dr. Santana and was told MTHFR was positive and she was given folic acid to take. It is unknown if MTFR was identified in this patients hypercoaguable work-up as it is not statically recognized anymore as a hypercoagulable state, however this still seems to be considered by many block layer. She states she is not fully sure what dosage of eliquis she should be taking because when she moved she seen a pcp and told them 2.5 but she says it may have been 5mg po BID. She states she was seen in ER at [facility] 3 weeks prior and diagnosed with NSTEMI. I have requested these records for review. She denies control or active tobacco use. Her initial thrombolic event was nonprovoked. Therefore it was recommended she was on AC therapy for life. She has heavy menses, especially on AC therapy. Review of Systems All systems: negative Constitutional: Reports as per HPI Past Medical History Past Medical History: Hyperlipidemia, Hypertension, Pulmonary Embolus (PE) Additional Past Medical History / Comment(s): PE 2016, Heart attack 3 weeks ago per patient Last Myocardial Infarction Date:: 3 weeks ago History of Any Multi-Drug Resistant Organisms: None Reported Past Surgical History: Section Additional Past Surgical History / Comment(s): Eye surgery Past Psychological History: Anxiety Smoking Status: Never smoker Past Alcohol Use History: Occasional Past Drug Use History: None Reported Medications and Allergies Home Medications Medication Instructions Recorded Confirmed Type Albuterol Sulfate [Proair Hfa] 2 puff INHALATION RT-Q6H PRN 08/30/21 03/30/22 History Apixaban [Eliquis] 2.5 mg PO BID 08/30/21 03/30/22 History Ferrous Sulfate [Feosol] 325 mg PO DAILY 08/30/21 03/30/22 History Lisinopril-Hctz 10-12.5 mg 1 tab PO DAILY 08/30/21 03/30/22 History [Zestoretic 10-12.5] Budesonide-Formot 160-4.5 Mcg 2 puff INHALATION RT-BID 03/30/22 03/30/22 History [Symbicort 160-4.5 Mcg Inhaler] Cyanocobalamin (Vitamin B-12) 1,000 mcg PO DAILY 03/30/22 03/30/22 History [Vitamin B-12] Ergocalciferol (Vitamin D2) 1,250 mcg PO Q7D 03/30/22 03/30/22 History [Drisdol (50,000 Iu)] Sennosides [Senokot] 17.2 mg PO HS PRN 03/30/22 03/30/22 History Allergies Allergy/AdvReac Type Severity Reaction Status Date / Time codeine Allergy Rash/Hives Verified 03/30/22 22:03 Influenza Virus Vaccines Allergy Rash/Hives Verified 03/30/22 22:03 Sulfa (Sulfonamide Allergy Unknown Verified 03/30/22 22:03 Antibiotics) Physical Exam Vitals: Vital Signs Temp Pulse Resp BP Pulse Ox 04/01/22 11:39 98.1 F 67 16 126/86 99 04/01/22 08:27 98.3 F 66 16 136/83 99 04/01/22 03:44 98.4 F 66 12 111/75 98 03/31/22 23:51 98.2 F 64 12 124/81 98 03/31/22 20:00 98 F 71 12 119/69 98 03/31/22 16:00 98 F 71 18 115/73 98 03/31/22 12:00 98.1 F 85 18 118/74 97 Intake and Output 03/31/22 04/01/22 04/01/22 22:59 06:59 14:59 Intake Total 360 Balance 360 Intake: Oral 360 Other: Voiding Method Toilet Toilet # Voids 2 - Constitutional General appearance: obese - EENT Eyes: edentulous ENT: NA/AT - Neck Neck: normal ROM - Respiratory Respiratory: bilateral: diminished - Cardiovascular Rhythm: regularly irregular - Gastrointestinal General gastrointestinal: soft - Integumentary Integumentary: pale - Neurologic Neurologic: CNII-XII intact - Musculoskeletal Musculoskeletal: generalized weakness - Psychiatric Psychiatric: A&O x's 3 Results CBC & Chem 7: 04/01/22 06:28 04/01/22 06:28 Labs: Abnormal Lab Results - Last 24 Hours (Table) 04/01/22 04/01/22 Range/Units 06:28 06:28 Hgb 11.3 L (11.4-16.0) gm/dL RDW 16.5 H (11.5-15.5) % Chloride 108 H (98-107) mmol/L Glucose 100 H (74-99) mg/dL Venous US: report reviewed Assessment and Plan (1) History of pulmonary embolism Narrative/Plan: - Presenting to ER with CHest pain, SOB and history of PE Bilateral on subtherapeutic dosing of ELiquis, check CTA as no objective findings to explain her primary complaint, if negative we can discharge on same dose prior of 2.5mg po bid. - Will need to confirm records from [facility] She can establish care closer to home in our clinic, follow-up in 6-8 weeks. Current Visit: Yes Status: Acute Code(s): Z86.711 - PERSONAL HISTORY OF PULMONARY EMBOLISM SNOMED Code(s): 876276621
--- NOTE | 2022-04-01 23:38 | CT ---
EXAMINATION TYPE: CT angio chest DATE OF EXAM: 04/01/2022 COMPARISON: 03-12 HISTORY: chest pain CT DLP: 518.5 mGycm Automated exposure control for dose reduction was used. CONTRAST: Performed with IV Contrast, patient injected with 100ml mL of Isovue 370. Images obtained from the thoracic inlet to the diaphragm with the IV contrast. There are Three-D post processed images. The lungs are clear of consolidation. No pleural effusion. Heart size is normal. No pericardial effus ion. There is no mediastinal adenopathy. There are no hilar masses. Thoracic aorta is intact. No aneurysm or dissection. There is normal contrast opacification of the pulmonary arteries. No filling defect. U pper abdominal soft tissues are intact. The thoracic spine is intact. No compression fracture. Sternum is intact. IMPRESSION: Negative exam. No evidence of pulmonary embolism. No adverse change compared to old exam.
[2022-04-02] MEDS: SODIUM CHLORIDE 0.9% 1,000 ML IV SCH ×2 (01:27→17:49)
[2022-04-02] MEDS: SYMBICORT 160-4.5 MCG INHALER INHALATION SCH ×2 (07:41→19:02)
[2022-04-02 08:26] LABS: Anisocytosis Slight; Basophils % (A) 1 %; Eosinophils # (A) 0.2 k/uL (0-0.7); Eosinophils % (A) 2 %; HCT 37.2 % (34.0-46.0); Hypochromasia Slight; Lymphocytes % (A) 27 %; MCH 28.1 pg (25.0-35.0); MCHC 32.2 g/dL (31.0-37.0); MCV 87.2 fL (80.0-100.0); Mean Platelet Volume 8.6; Monocytes # (A) 0.3 k/uL (0-1.0); Monocytes % (A) 4 %; Neutrophils # (A) 4.8 k/uL (1.3-7.7); Neutrophils % (A) 64 %; Platelet Count 374 k/uL (150-450); RBC 4.27 m/uL (3.80-5.40); RDW 16.5 % (11.5-15.5); WBC 7.5 k/uL (3.8-10.6)
[2022-04-02] MEDS: APIXABAN 2.5 MG TABLET PO SCH ×2 (08:42→20:44)
[2022-04-02] MEDS: CYANOCOBALAMIN 500 MCG TAB PO SCH (08:42)
[2022-04-02] MEDS: FERROUS SULFATE 325 MG TAB PO SCH (08:43)
[2022-04-02] MEDS: lisinopriL 10 MG TAB PO SCH (08:43)
[2022-04-02 08:50] LABS: ALT 9 U/L (4-34); AST 13 U/L (14-36); African American GFR (CKD) >90 (>60 ml/min/1.73 sqM); Albumin 3.9 g/dL (3.5-5.0); Alkaline Phosphatase 66 U/L (38-126); Anion Gap 7 mmol/L; Blood Urea Nitrogen 7 mg/dL (7-17); Carbon Dioxide 24 mmol/L (22-30); Chloride 107 mmol/L (98-107); Glucose 101 mg/dL (74-99); LDH 295 U/L (313-618); Non-African American GFR(CKD) >90 (>60 ml/min/1.73 sqM); Potassium 4.3 mmol/L (3.5-5.1); Sodium 138 mmol/L (137-145); Total Bilirubin <0.1 mg/dL (0.2-1.3); Total Protein 6.5 g/dL (6.3-8.2)
[2022-04-02] MEDS ORDERED: ERGOCALCIFEROL 1,250 MCG (50,000 IU) CAPSULE PO SCH (09:00)
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
[2022-04-02] MEDS: CHOLECALCIFEROL 125 MCG (5000 IU) TABLET PO SCH (15:17)
[2022-04-02 16:17] VITALS: RESP 16
--- NOTE | 2022-04-02 16:32 | P.PN ---
Subjective Progress Note Date: 04/02/22 Principal diagnosis: Chest Pain CTA and venous doppler negative, no new thrombolic events noted on eliquis 2.5 BID therefore recommendation to remain on 2.5. Objective - Vital Signs Vital signs: Vital Signs Temp 98.6 F 04/02/22 16:00 Pulse 74 04/02/22 16:00 Resp 16 04/02/22 16:00 BP 123/72 04/02/22 16:00 Pulse Ox 98 04/02/22 16:00 FiO2 Intake & Output 04/01/22 04/02/22 04/02/22 18:59 06:59 18:59 Intake Total 550 Balance 550 Intake: Oral 550 Other: Voiding Method Toilet Toilet # Voids 1 2 1 # Bowel Movements 1 - Exam - Constitutional General appearance: obese - EENT Eyes: edentulous ENT: NA/AT - Neck Neck: normal ROM - Respiratory Respiratory: bilateral: diminished - Cardiovascular Rhythm: regularly irregular - Gastrointestinal General gastrointestinal: soft - Integumentary Integumentary: pale - Neurologic Neurologic: CNII-XII intact - Musculoskeletal Musculoskeletal: generalized weakness - Psychiatric Psychiatric: A&O x's 3 - Labs CBC & Chem 7: 04/02/22 07:30 04/02/22 07:30 Labs: Abnormal Lab Results - Last 24 Hours (Table) 04/01/22 04/01/22 04/02/22 Range/Units 11:25 12:50 07:30 RDW 16.5 H (11.5-15.5) % Glucose (74-99) mg/dL Iron 22 L 32 L (50-170) ug/dL % Saturation 6.21 L (12.00-45.00) Total Bilirubin (0.2-1.3) mg/dL AST (14-36) U/L Lactate Dehydrogenase (313-618) U/L Vitamin D 25-Hydroxy 18.6 L (30.0-100.0) ng/mL 04/02/22 Range/Units 07:30 RDW (11.5-15.5) % Glucose 101 H (74-99) mg/dL Iron (50-170) ug/dL % Saturation (12.00-45.00) Total Bilirubin <0.1 L (0.2-1.3) mg/dL AST 13 L (14-36) U/L Lactate Dehydrogenase 295 L (313-618) U/L Vitamin D 25-Hydroxy (30.0-100.0) ng/mL Assessment and Plan (1) History of pulmonary embolism Narrative/Plan: - Presenting to ER with CHest pain, SOB and history of PE Bilateral on subtherapeutic dosing of ELiquis, check CTA as no objective findings to explain her primary complaint, if negative we can discharge on same dose prior of 2.5mg po bid. - Will need to confirm records from [facility] She can establish care closer to home in our clinic, follow-up in 6-8 weeks. Neg CTA and doppler, resume Eliquis 2.5mg PO BID at discharge Discussed with primary team Current Visit: Yes Status: Acute Code(s): Z86.711 - PERSONAL HISTORY OF PULMONARY EMBOLISM SNOMED Code(s): 401795637
[2022-04-02] MEDS: ALPRAZolam 0.5 MG TAB PO PRN (20:44)
[2022-04-02] MEDS: KETOROLAC 15 MG/ML 1 ML VIAL IVP PRN (20:44)
[2022-04-03] MEDS: SYMBICORT 160-4.5 MCG INHALER INHALATION SCH ×2 (07:17→19:55)
[2022-04-03 08:28] LABS: Methylmalonic Acid 0.14 umol/L (<0.40)
[2022-04-03] MEDS: SODIUM CHLORIDE 0.9% 1,000 ML IV SCH (09:13)
--- NOTE | 2022-04-03 10:22 | MR ---
EXAMINATION TYPE: MR brain/cspine wo/w DATE OF EXAM: 04/03/2022 COMPARISON: CT brain 04/01/2022 HISTORY: No prior, left sided numbness and weakness TECHNIQUE: Multiplanar, multisequence images of the brain and brainstem and cervical spine is performed without and with IV contrast, utilizing 10ml mL intravenous Gadavist . FINDINGS: Patient's dental hardware causes artifact Brain MRI: Diffusion weighted images demonstrate no evidence of a recent infarct or other diffusion abnormality. There is no extra-axial fluid collection or significant white matter signal abnormality. The ventr icular system and cisternal spaces are normal in size and appearance. The brain volume is age approp riate. Midline structures demonstrate normal morphology. The craniocervical junction appears within normal limits. Post contrast images demonstrate no abnormal enhancement. The dural venous sinuses appear pa tent. The visualized sinuses are remarkable for inflammatory change in the sphenoid sinus on the righ t as noted on prior CT, and the globes are intact. Probable Virchow Daniel spaces present in the poste rior parietal white matter. IMPRESSION: There is extensive artifact which could limit evaluation. Brain signal is normal. Sphenoi d sinus disease. Cervical spine MRI: Cervical vertebral bodies show preserved height, alignment, and bone marrow signa l. There is no evident spinal stenosis. Some loss of disc signal at intervertebral levels C3-4, C4-5 consistent with disc desiccation, small posterior right paracentral disc bulge present at C3-4 causes slight anterolateral mass effect on the thecal sac. At C4-5 there is a central posterior disc bulge causing minimal anterior mass effect on the thecal sac. No significant foraminal encroachment. Cervic al cord signal is maintained. There is no abnormal enhancement following contrast administration. IMPRESSION: Mild degenerative disc disease.
[2022-04-03] MEDS: FERROUS SULFATE 325 MG TAB PO SCH (10:52)
[2022-04-03] MEDS: CYANOCOBALAMIN 500 MCG TAB PO SCH (10:52)
[2022-04-03] MEDS: APIXABAN 2.5 MG TABLET PO SCH ×2 (10:53→21:49)
[2022-04-03] MEDS: lisinopriL 10 MG TAB PO SCH (10:53)
[2022-04-03] MEDS: CHOLECALCIFEROL 125 MCG (5000 IU) TABLET PO SCH (10:53)
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
[2022-04-03] MEDS: ALPRAZolam 0.5 MG TAB PO PRN (23:28)
[2022-04-04] MEDS: SYMBICORT 160-4.5 MCG INHALER INHALATION SCH ×2 (07:26→19:44)
[2022-04-04] MEDS: CHOLECALCIFEROL 125 MCG (5000 IU) TABLET PO SCH (09:50)
[2022-04-04] MEDS: CYANOCOBALAMIN 500 MCG TAB PO SCH (09:50)
[2022-04-04] MEDS: FERROUS SULFATE 325 MG TAB PO SCH (09:50)
[2022-04-04] MEDS: lisinopriL 10 MG TAB PO SCH (09:50)
[2022-04-04] MEDS: APIXABAN 2.5 MG TABLET PO SCH (09:50)
[2022-04-04] MEDS: SODIUM CHLORIDE 0.9% 1,000 ML IV SCH (09:52)
[2022-04-04 12:53] VITALS: BMI 34.1
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
[2022-04-04 20:02] VITALS: BP 124/90; PULSE 89; TEMP 98.3
== END 2022-04-04 20:29 | disposition home or self-care (01) | DRG 640 ==
LOC: EC 20:17 → 3SCARD 23:24
PROVIDERS: ADMIT Hospitalist; ATTEND Hospitalist
DX: E87.6 Hypokalemia (principal); I21.4 Non-ST elevation (NSTEMI) myocardial infarction; E72.12 Methylenetetrahydrofolate reductase deficiency; T50.2X5A Adverse effect of carbonic-anhydrase inhibitors, benzothiadiazides and other diuretics, initial encounter; E66.9 Obesity, unspecified; E78.5 Hyperlipidemia, unspecified; E83.42 Hypomagnesemia; E83.51 Hypocalcemia; F41.9 Anxiety disorder, unspecified; R19.7 Diarrhea, unspecified; D50.9 Iron deficiency anemia, unspecified; I10 Essential (primary) hypertension; I08.1 Rheumatic disorders of both mitral and tricuspid valves; H43.399 Other vitreous opacities, unspecified eye; R11.0 Nausea; I25.2 Old myocardial infarction; Z88.5 Allergy status to narcotic agent; Z88.2 Allergy status to sulfonamides; Z88.7 Allergy status to serum and vaccine; Z86.711 Personal history of pulmonary embolism; Z79.01 Long term (current) use of anticoagulants; M50.30 Other cervical disc degeneration, unspecified cervical region; N92.0 Excessive and frequent menstruation with regular cycle; Z68.34 Body mass index [BMI] 34.0-34.9, adult; Z79.51 Long term (current) use of inhaled steroids; Z82.49 Family history of ischemic heart disease and other diseases of the circulatory system; Z87.820 Personal history of traumatic brain injury; Z87.828 Personal history of other (healed) physical injury and trauma; Z28.21 Immunization not carried out because of patient refusal
CPT/HCPCS: 36415; 70450; 70553; 71046; 71275; 72156; 80048; 80053; 80076; 81001; 82306; 82330; 82607; 82728; 82746; 83036; 83540; 83550; 83615; 83735; 83921; 83970; 84425; 84443; 84484; 84703; 85025; 85379; 85610; 85652; 85730; 86038; 86431; 93005; 93306; 93351; 94640; 94760; 96361; 96365; 96368; 96375; 99285

== ENCOUNTER → 2022-04-25 | Outpatient (CLI) | payer MEDICAID, OTHER ==
--- NOTE | 2022-05-07 13:48 | MM ---
Reason for Exam: Screening (asymptomatic). Last mammogram was performed 1 year(s) and 3 month(s) ago. Patient History: Menarche at age 12. First Full-Term at age 15. Paternal aunt had breast cancer, age 45. Last menstrual period: 04/10/2022 Risk Values: Marika 5 year model risk: 0.4%. NCI Lifetime model risk: 7.3%. Prior Study Comparison: 05/24/2012 Bilateral Diagnostic Mammogram, [facility]. 01/30/2016 Bilateral Diagnostic Mammogram, [facility]. 08/19/2019 Bilateral MG screening mammo w CAD - 2, [facility]. Tissue Density: There are scattered fibroglandular densities. Findings: Analyzed By CAD. Benign coarse calcifications are within the left breast. A left core marker is present. No suspicious groups of microcalcifications, spiculated or lobular masses, architectural distortion or other secondary signs of malignancy are mammographically apparent. Overall Assessment: Benign, BI-RAD 2 Management: Screening Mammogram of both breasts in 1 year. A negative mammogram report should not preclude additional follow up of suspicious palpable abnormalities. Patient should continue monthly self breast exam. A clinical breast exam by your physician is recommended on an annual basis and results should be correlated with mammographic findings. Electronically signed and approved by: Danny Washington D.O. Radiologis
== END | disposition home or self-care (01) ==
LOC: RADMAMWWP 13:33
PROVIDERS: ATTEND Family Medicine
DX: Z12.31 Encounter for screening mammogram for malignant neoplasm of breast (principal); Z80.3 Family history of malignant neoplasm of breast
CPT/HCPCS: 77063; 77067

== ENCOUNTER → 2022-05-01 | Outpatient (CLI) | payer MEDICAID, OTHER | END | disposition home or self-care (01) | LOC: LABWHC1 12:43 | PROVIDERS: ATTEND Internal Medicine Critical Care Medicine | DX: Z00.00 Encounter for general adult medical examination without abnormal findings (principal); Z88.7 Allergy status to serum and vaccine | CPT/HCPCS: 36415; 82785; 86606 ==

== ENCOUNTER → 2022-07-22 | Outpatient (CLI) | payer OTHER ==
--- NOTE | 2022-07-22 11:59 | US ---
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 Pain in neck, thinks it thyroid GLAND SIZE: Right Lobe: 4.8 x 1.4 x 1.5 cm Overall Parenchyma: heterogenous Left Lobe: 4.8 x 1.2 x 1.3 cm Overall Parenchyma: heterogeneous Isthmus Thickness: 0.3 cm NODULES RIGHT: # of nodules measured on right: 0 LEFT: # of nodules measured on left: 0 ISTHMUS: # of nodules measured in the isthmus: 0 Bilateral neck scanned, no evidence of lymphadenopathy. IMPRESSION: 1. No discrete thyroid nodules identified. 2. Diffusely heterogenous thyroid gland.
== END | disposition home or self-care (01) ==
LOC: RADUSWWP 11:14
PROVIDERS: ATTEND Family Medicine
DX: E01.1 Iodine-deficiency related multinodular (endemic) goiter (principal)
CPT/HCPCS: 76536

== ENCOUNTER → 2022-07-29 | Outpatient (CLI) | payer OTHER ==
--- NOTE | 2022-07-29 11:25 | USB ---
Reason for Exam: Clinical finding. Patient History: Menarche at age 12. First Full-Term at age 15. Paternal aunt had breast cancer, age 45. Risk Values: Marika 5 year model risk: 0.4%. NCI Lifetime model risk: 7.3%. Technique: Method: Whole Breast Handheld. Prior Study Comparison: 02/14/2020 Bilateral MG 3D diag mammo w/cad CHER - 2, [facility] [place] . 12/31/2020 Right MG 3D diag mammo w/cad RT - 2, [facility] [place] . 04/25/2022 Bilateral MG 3D screening mammo w/cad, [facility]. Findings: The whole breast of both breasts, the axilla of both breasts and the retroareolar of both breasts were scanned. No suspicious solid or cystic masses are identified. There is a 0.5 x 0.5 x 0.5 cm irregular hypoechoic area which may have some shadowing. This is at the 6:00 position 8 cm nipple which appears to correspond to a core marker at this level. Patient reports this area was previously biopsied. Results are unavailable this location. Prior complex cystic area within the right breast 9:00 position is not identified on the current exam..No suspicious solid or cystic masses are identified. There is a 0.5 x 0.5 x 0.5 cm irregular hypoechoic area which may have some shadowing. This is at the 6:00 position 8 cm nipple which appears to correspond to a core marker at this level. Patient reports this area was previously biopsied. Results are unavailable this location. Follow-up exam in 6 months is recommended. There is a 0.5 x 0.5 x 0.6 cm round hypoechoic area with posterior wall enhancement through transmission. Small cyst too small to classify as likely present. This can be reevaluated in 6 months. Prior complex cystic area within the right breast 9:00 position is not identified on the current exam.. Overall Assessment: Probably benign, BI-RAD 3 Management: Diagnostic Breast Ultrasound of the right breast in 6 months. Screening Mammogram of both breasts in 9 months. A clinical breast exam by your physician is recommended on an annual basis and results should be correlated with mammographic findings. This exam should not preclude additional follow-up of suspicious palpable abnormalities. ??Results were given to the patient verbally at the time of exam. Electronically signed and approved by: Danny Washington D.O. Radiologis
== END | disposition home or self-care (01) ==
LOC: RADUSWWP 10:35
PROVIDERS: ATTEND Family Medicine
DX: N64.4 Mastodynia (principal)

== ENCOUNTER → 2023-04-28 | Outpatient (CLI) | payer OTHER ==
--- NOTE | 2023-04-28 09:47 | MM ---
Reason for Exam: Clinical finding. Last mammogram was performed 1 year(s) and 1 month(s) ago. Patient History: Menarche at age 12. First Full-Term at age 15. Premenopausal. Paternal aunt had breast cancer, age 45. Last menstrual period: 04/28/2023 Risk Values: Marika 5 year model risk: 0.5%. NCI Lifetime model risk: 7.2%. Prior Study Comparison: 05/24/2012 Bilateral Diagnostic Mammogram, [facility]. 01/30/2016 Bilateral Diagnostic Mammogram, [facility]. 01/30/2016 Bilateral Diagnostic Ultrasound, [facility]. 08/19/2019 Bilateral MG screening mammo w CAD - 2, [facility]. 02/14/2020 Bilateral MG 3D diag mammo w/cad [facility]ER - 2, [facility] . 12/31/2020 Right MG 3D diag mammo w/cad RT - 2, [facility] . 04/25/2022 Bilateral MG 3D screening mammo w/cad, [facility]. 07/29/2022 Bilateral US breast BILAT, [facility]. Tissue Density: There are scattered fibroglandular densities. Findings: Analyzed By CAD. 2 palpable markers along the left breast and one medially at the right breast. Along the left upper outer quadrant, some clustered boil cyst calcifications are present. This may correspond to one of the patient's left-sided palpable sites. Microclip left breast from prior biopsy. Otherwise, no significant change. Overall Assessment: Incomplete: need additional imaging evaluation, BI-RAD 0 Management: Diagnostic Breast Ultrasound of both breasts. Electronically signed and approved by: Ivanna Betancourt M.D. Radiologist
--- NOTE | 2023-04-28 10:32 | USB ---
Reason for Exam: Clinical finding. Patient History: Menarche at age 12. First Full-Term at age 15. Premenopausal. Paternal aunt had breast cancer, age 45. Risk Values: Marika 5 year model risk: 0.5%. NCI Lifetime model risk: 7.2%. Technique: Method: Whole Breast Handheld. Prior Study Comparison: 02/14/2020 Bilateral MG 3D diag mammo w/cad CHER - 2, [facility] [place] . 12/31/2020 Right MG 3D diag mammo w/cad RT - 2, [facility] [place] . 04/25/2022 Bilateral MG 3D screening mammo w/cad, [facility]. Findings: The whole breast of both breasts, the axilla of both breasts and the retroareolar of both breasts were scanned. A complete US of all four quadrants of the both breasts, axilla, and retro-areolar regions were reviewed. Right: Palpable marker at the 3:00 position. No solid or cystic lesion here or elsewhere throughout the breasts. No definite dictation or axillary lymphadenopathy. Left: Palpable marker at the 3:00 position. Underlying two adjacent shadowing cysts measuring 5 mm each. These likely correspond to the oil cysts seen on mammogram. Second palpable site at the 9:00 position shows no discrete abnormality. At the 11:00 position, 5 cm from the nipple, there is a probable 5 mm cyst located deep, unchanged from 07/29/2022. No other solid or cystic lesion or axillary lymphadenopathy. Overall Assessment: Benign, BI-RAD 2 Management: Screening Mammogram of both breasts in 1 year. 1. Further clinical management of a benign/white right-sided nipple discharge. Suspicious nipple discharge that would warrant further evaluation includes spontaneous clear or bloody discharge localized to a single pore on the nipple. 2. Further clinical management of any suspicious palpable abnormalities. The patient's left breast 9:00 palpable site seems to correspond to a cluster of benign oil cysts. No imaging correlate to the other probable sites. 3. Patient should continue monthly self breast exams. Results were given to the patient verbally at the time of exam. Electronically signed and approved by: Ivanna Betancourt M.D. Radiologist
== END | disposition home or self-care (01) ==
LOC: RADMAMWWP 08:46
PROVIDERS: ATTEND Family Medicine
DX: N63.20 Unspecified lump in the left breast, unspecified quadrant (principal); N63.10 Unspecified lump in the right breast, unspecified quadrant; Z80.3 Family history of malignant neoplasm of breast
CPT/HCPCS: 77066; 76641; G0279; 77062

== ENCOUNTER 2023-06-04 09:36 | Emergency (ER) | payer OTHER ==
[2023-06-04 10:50] LABS: Basophils % (A) 0 %; Eosinophils # (A) 0.3 k/uL (0-0.7); Eosinophils % (A) 5 %; HCT 33.9 % (34.0-46.0); HGB 10.9 gm/dL (11.4-16.0); Hypochromasia Slight; Lymphocytes # (A) 1.9 k/uL (1.0-4.8); Lymphocytes % (A) 24 %; MCH 27.1 pg (25.0-35.0); MCHC 32.1 g/dL (31.0-37.0); MCV 84.3 fL (80.0-100.0); Mean Platelet Volume 8.7; Monocytes # (A) 0.2 k/uL (0-1.0); Monocytes % (A) 3 %; Neutrophils # (A) 5.1 k/uL (1.3-7.7); Neutrophils % (A) 67 %; Platelet Count 348 k/uL (150-450); RBC 4.02 m/uL (3.80-5.40); RDW 15.9 % (11.5-15.5); WBC 7.7 k/uL (3.8-10.6)
[2023-06-04 11:04] LABS: ALT 17 U/L (4-34); AST 27 U/L (14-36); African American GFR (CKD) >90 (>60 ml/min/1.73 sqM); Albumin 4.2 g/dL (3.5-5.0); Alkaline Phosphatase 84 U/L (38-126); Anion Gap 8 mmol/L; Blood Urea Nitrogen 8 mg/dL (7-17); Calcium 8.9 mg/dL (8.4-10.2); Carbon Dioxide 23 mmol/L (22-30); Chloride 106 mmol/L (98-107); Glucose 100 mg/dL (74-99); Non-African American GFR(CKD) >90 (>60 ml/min/1.73 sqM); Potassium 4.1 mmol/L (3.5-5.1); Sodium 137 mmol/L (137-145); Total Bilirubin 0.5 mg/dL (0.2-1.3); Total Protein 7.4 g/dL (6.3-8.2)
--- NOTE | 2023-06-04 11:50 | US ---
EXAMINATION TYPE: US venous doppler duplex LE LT DATE OF EXAM: 06/04/2023 11:38 AM COMPARISON: NONE CLINICAL INDICATION: Female, 42 years old with history of pain; PE 2016, no Hx DVT, Superficial lump appeared yesterday with pain on lt lower lateral calf SIDE PERFORMED: Left TECHNIQUE: The lower extremity deep venous system is examined utilizing real time linear array sonog carol with graded compression, doppler sonography and color-flow sonography. VESSELS IMAGED: Common Femoral Vein Deep Femoral Vein Greater Saphenous Vein * Femoral Vein Popliteal Vein Small Saphenous Vein * Proximal Calf Veins (* superficial vessels) Left Leg: Negative for DVT Cardiac Catheterization Technician notes: Small 1.3x0.9x0.3cm hypoechoic area noted at AOC, does not seem to be vascular. Th e patient has a history of thrombophlebitis. IMPRESSION: 1. No evidence for DVT within the left lower extremity imaged from the groin to the upper calf. 2. Additional targeted scanning along the lateral calf at the patient's area of concern shows a small 1.3 x 0.9 x 0.3 cm oval hypoechoic lesion in the deep subcutaneous fat layer overlying the superfici al fascia. The etiology is unclear. It does not appear to represent an abnormal fluid collection or s uspicious mass. A prominent fat lobule is possible. Follow-up ultrasound in 2-3 months to reassess.
[2023-06-04 11:53] VITALS: BP 136/74; PULSE 64; RESP 18; TEMP 98
--- NOTE | 2023-06-04 12:00 | ED ---
General Adult HPI - General Chief complaint: Extremity Problem,Nontraumatic Stated complaint: L leg swelling Time Seen by Provider: 06/04/23 09:40 Source: patient, RN notes reviewed Mode of arrival: ambulatory Limitations: no limitations - History of Present Illness Initial comments: 42-year-old female presents emergency from chief complaint left leg pain, swelling. Patient states that she has a history DVT and is concern as she's been forgetting take her Eliquis. She denies any severe chest pain. She does not that she is currently on her menstrual cycle and been having some increasing bleeding secondary to her Eliquis. Patient has a history of anemia and is concerned. Denies any fevers or chills denies trauma but states her some bruising at the site of pain in her left leg. - Related Data Home Medications Medication Instructions Recorded Confirmed Lisinopril-Hctz 10-12.5 mg 1 tab PO DAILY 08/30/21 06/04/23 [Zestoretic 10-12.5] Ergocalciferol (Vitamin D2) 1,250 mcg PO Q7D 03/30/22 06/04/23 [Drisdol (50,000 Iu)] Apixaban [Eliquis] 5 mg PO BID 06/04/23 06/04/23 Betamethasone Dipropionate 1 applic TOPICAL DAILY PRN 06/04/23 06/04/23 [Betamethasone Dipropionate 0.05%] Escitalopram [Lexapro] 20 mg PO DAILY 06/04/23 06/04/23 Ferrous Sulfate [Iron] 325 mg PO MOWEFR 06/04/23 06/04/23 busPIRone HCl [Buspar] 5 mg PO TID 06/04/23 06/04/23 Allergies Allergy/AdvReac Type Severity Reaction Status Date / Time codeine Allergy Rash/Hives Verified 06/04/23 10:43 Influenza Virus Vaccines Allergy Rash/Hives Verified 06/04/23 10:43 Sulfa (Sulfonamide Allergy Unknown Verified 06/04/23 10:43 Antibiotics) Review of Systems ROS Statement: Those systems with pertinent positive or pertinent negative responses have been documented in the HPI. ROS Other: All systems not noted in ROS Statement are negative. Past Medical History Past Medical History: Deep Vein Thrombosis (DVT), Hyperlipidemia, Hypertension, Myocardial Infarction ([place]), Pulmonary Embolus (PE) Additional Past Medical History / Comment(s): PE 2016 Last Myocardial Infarction Date:: 3 weeks ago History of Any Multi-Drug Resistant Organisms: None Reported Past Surgical History: Section Additional Past Surgical History / Comment(s): Eye surgery Past Psychological History: Anxiety Smoking Status: Never smoker Past Alcohol Use History: Occasional Past Drug Use History: None Reported General Exam Limitations: no limitations General appearance: alert, in no apparent distress Head exam: Present: atraumatic, normocephalic, normal inspection Eye exam: Present: normal appearance, PERRL, EOMI. Absent: scleral icterus, conjunctival injection, periorbital swelling ENT exam: Present: normal exam, normal oropharynx, mucous membranes moist Neck exam: Present: normal inspection, full ROM. Absent: tenderness, meningismus, lymphadenopathy Respiratory exam: Present: normal lung sounds bilaterally. Absent: respiratory distress, wheezes, rales, rhonchi, stridor Cardiovascular Exam: Present: regular rate, normal rhythm, normal heart sounds. Absent: systolic murmur, diastolic murmur, rubs, gallop, clicks Extremities exam: Present: other (Left lateral leg tenderness over the area of ecchymosis or pulses equal bilaterally) Course Vital Signs 06/04/23 06/04/23 09:42 11:49 Temperature 98.7 F 98.0 F Pulse Rate 84 64 Respiratory 16 18 Rate Blood Pressure 132/81 136/74 O2 Sat by Pulse 98 100 Oximetry Medical Decision Making - Medical Decision Making Was pt. sent in by a medical professional or institution (, PA, COAT FELLER, urgent care, hospital, or half-way...) When possible be specific @ -No Did you speak to anyone other than the patient for history (EMS, parent, family, police, friend...)? What history was obtained from this source @ -No Did you review nursing and triage notes (agree or disagree)? Why? @ -I reviewed and agree with nursing and triage notes Were old charts reviewed (outside hosp., previous admission, EMS record, old EKG, old radiological studies, urgent care reports/EKG's, half-way records)? Report findings @ -No old charts were reviewed Differential Diagnosis (chest pain, altered mental status, abdominal pain women, abdominal pain men, vaginal bleeding, weakness, fever, dyspnea, syncope, headache, dizziness, GI bleed, back pain, seizure, CVA, palpatations, mental health, musculoskeletal)? @ -DVT, superficial from phlebitis, cellulitis, leg contusion EKG interpreted by me (3pts min.). @ -None X-rays interpreted by me (1pt min.). @ -None done CT interpreted by me (1pt min.). @ -None done U/S interpreted by me (1pt. min.). @ -Ultrasound shows no evidence of DVT of the left leg there is a nonvascular abnormality noted on ultrasound, repeat imaging in 2-3 months What testing was considered but not performed or refused? (CT, X-rays, U/S, labs)? Why? @ -None What meds were considered but not given or refused? Why? @ -None Did you discuss the management of the patient with other professionals (karen hurst i.ePiper Hackett, PA, COAT FELLER, lab, RT, psych nurse, sr. social media & mobile manager, mechanical handyman, teacher, client sales and service officer, protective services case worker)? Give summary @ -No Was smoking cessation discussed for >3mins.? @ -No Was critical care preformed (if so, how long)? @ -No Were there social determinants of health that impacted care today? How? (Homelessness, low income, unemployed, alcoholism, drug addiction, transportatio n, low edu. Level, literacy, decrease access to med. care, assisted, rehab)? @ -No Was there de-escalation of care discussed even if they declined (Discuss DNR or withdrawal of care, Hospice)? DNR status @ -No What co-morbidities impacted this encounter? (DM, HTN, Smoking, COPD, CAD, Cancer, CVA, ARF, Chemo, Hep., AIDS, mental health diagnosis, sleep apnea, morbid obesity)? @ -None Was patient admitted / discharged? Hospital course, mention meds given and route, prescriptions, significant lab abnormalities, going to OR and other pertinent info. @ -Discharge patient ultrasound was negative for acute DVT patient does not have significant anemia in which a concern secondary to vaginal bleeding and cannot localize. Patient does not have any significant hemorrhaging. Patient will be discharged in stable condition with close follow-up. Undiagnosed new problem with uncertain prognosis? @ -No Drug Therapy requiring intensive monitoring for toxicity (Heparin, Nitro, Insulin, Cardizem)? @ -No Were any procedures done? @ -No Diagnosis/symptom? @ -Leg pain, leg contusion Acute, or Chronic, or Acute on Chronic? @ -Acute Uncomplicated (without systemic symptoms) or Complicated (systemic symptoms)? @ -Uncomplicated Side effects of treatment? @ -No Exacerbation, Progression, or Severe Exacerbation? @ -No Poses a threat to life or bodily function? How? (Chest pain, [place], [place], pneumonia, PE, COPD, DKA, ARF, appy, cholecystitis, CVA, Diverticulitis, Homicidal, Suicidal, threat to staff... and all critical care pts) @ -No - Lab Data Result diagrams: 06/04/23 10:45 06/04/23 10:45 Lab Results 06/04/23 06/04/23 Range/Units 10:45 10:45 WBC 7.7 (3.8-10.6) k/uL RBC 4.02 (3.80-5.40) m/uL Hgb 10.9 L (11.4-16.0) gm/dL Hct 33.9 L (34.0-46.0) % MCV 84.3 (80.0-100.0) fL MCH 27.1 (25.0-35.0) pg MCHC 32.1 (31.0-37.0) g/dL RDW 15.9 H (11.5-15.5) % Plt Count 348 (150-450) k/uL MPV 8.7 Neutrophils % 67 % Lymphocytes % 24 % Monocytes % 3 % Eosinophils % 5 % Basophils % 0 % Neutrophils # 5.1 (1.3-7.7) k/uL Lymphocytes # 1.9 (1.0-4.8) k/uL Monocytes # 0.2 (0-1.0) k/uL Eosinophils # 0.3 (0-0.7) k/uL Basophils # 0.0 (0-0.2) k/uL Hypochromasia Slight Sodium 137 (137-145) mmol/L Potassium 4.1 (3.5-5.1) mmol/L Chloride 106 (98-107) mmol/L Carbon Dioxide 23 (22-30) mmol/L Anion Gap 8 mmol/L BUN 8 (7-17) mg/dL Creatinine 0.57 (0.52-1.04) mg/dL Est GFR (CKD-EPI)AfAm >90 (>60 ml/min/1.73 sqM) Est GFR (CKD-EPI)NonAf >90 (>60 ml/min/1.73 sqM) Glucose 100 H (74-99) mg/dL Calcium 8.9 (8.4-10.2) mg/dL Total Bilirubin 0.5 (0.2-1.3) mg/dL AST 27 (14-36) U/L ALT 17 (4-34) U/L Alkaline Phosphatase 84 (38-126) U/L Total Protein 7.4 (6.3-8.2) g/dL Albumin 4.2 (3.5-5.0) g/dL Disposition Clinical Impression: Left leg pain Disposition: HOME SELF-CARE Condition: Stable Instructions (If sedation given, give patient instructions): Leg Pain (ED) Additional Instructions: Please return to the Emergency Department if symptoms worsen or any other concerns. Is patient prescribed a controlled substance at d/c from ED?: No Referrals: Shonda Melton MD [Primary Care Provider] - 1-2 days Time of Disposition: 12:18
== END 2023-06-04 12:35 | disposition home or self-care (01) ==
LOC: EC 09:36
DX: M79.605 Pain in left leg (principal); I25.2 Old myocardial infarction; I10 Essential (primary) hypertension; F41.9 Anxiety disorder, unspecified; Z86.711 Personal history of pulmonary embolism; Z79.01 Long term (current) use of anticoagulants; Z79.899 Other long term (current) drug therapy; Z88.5 Allergy status to narcotic agent; Z88.7 Allergy status to serum and vaccine; Z88.2 Allergy status to sulfonamides; X58.XXXA Exposure to other specified factors, initial encounter
CPT/HCPCS: 36415; 80053; 85025; 99284

== ENCOUNTER 2023-09-13 02:20 | Emergency (ER) | payer OTHER ==
[2023-09-13 02:32] VITALS: RESP 18; TEMP 97.8
[2023-09-13] MEDS ORDERED: KETOROLAC 15 MG/ML 1 ML VIAL IM STA (02:38)
--- NOTE | 2023-09-13 02:46 | ED ---
General Adult HPI - General Chief complaint: Extremity Injury, Upper Stated complaint: fall,left arm injury Time Seen by Provider: 09/13/23 02:33 Source: patient, RN notes reviewed Mode of arrival: wheelchair Limitations: no limitations - History of Present Illness Initial comments: 42-year-old -[place] female with medical history significant for hypertension, hyperlipidemia, ID, PE presents emergency Department with a chief complaint of left arm pain. Patient reports that she was getting out of the shower when she slipped. She reports that she fell onto mostly her left shoulder. She is complaining of left shoulder pain, left elbow pain. She denies hitting her head or loss of consciousness. She is complaining of pain and did not take anything for his symptoms prior to arrival. He is currently taking Eliquis due to history of PEs. - Related Data Home Medications Medication Instructions Recorded Confirmed Lisinopril-Hctz 10-12.5 mg 1 tab PO DAILY 08/30/21 06/04/23 [Zestoretic 10-12.5] Ergocalciferol (Vitamin D2) 1,250 mcg PO Q7D 03/30/22 06/04/23 [Drisdol (50,000 Iu)] Apixaban [Eliquis] 5 mg PO BID 06/04/23 06/04/23 Betamethasone Dipropionate 1 applic TOPICAL DAILY PRN 06/04/23 06/04/23 [Betamethasone Dipropionate 0.05%] Escitalopram [Lexapro] 20 mg PO DAILY 06/04/23 06/04/23 Ferrous Sulfate [Iron] 325 mg PO MOWEFR 06/04/23 06/04/23 busPIRone HCl [Buspar] 5 mg PO TID 06/04/23 06/04/23 Previous Rx's Medication Instructions Recorded HYDROcodone/APAP 7.5-325MG [[place]on 1 tab PO Q6HR PRN #20 tab 09/13/23 7.5-325] Ondansetron Odt [Zofran Odt] 4 mg PO Q8HR PRN #10 tab 09/13/23 Allergies Allergy/AdvReac Type Severity Reaction Status Date / Time codeine Allergy Rash/Hives Verified 09/13/23 14:03 Influenza Virus Vaccines Allergy Rash/Hives Verified 09/13/23 14:03 Sulfa (Sulfonamide Allergy Unknown Verified 09/13/23 14:03 Antibiotics) Review of Systems ROS Statement: Those systems with pertinent positive or pertinent negative responses have been documented in the HPI. ROS Other: All systems not noted in ROS Statement are negative. Past Medical History Past Medical History: Deep Vein Thrombosis (DVT), Hyperlipidemia, Hypertension, Myocardial Infarction (ID), Pulmonary Embolus (PE) Additional Past Medical History / Comment(s): PE 2016 Last Myocardial Infarction Date:: 3 weeks ago History of Any Multi-Drug Resistant Organisms: None Reported Past Surgical History: Section Additional Past Surgical History / Comment(s): Eye surgery Past Psychological History: Anxiety Smoking Status: Never smoker Past Alcohol Use History: Occasional Past Drug Use History: None Reported General Exam - General Exam Comments Initial Comments: General: Alert, in no acute distress Head: atraumatic normocephalic. Eyes PERRL, EOMI intact, mucous membranes moist Respiratory: Lungs clear to auscultation bilaterally Cardiovascular: Heart rate regular rate and rhythm Abdominal: Soft without guarding or rebound Extremities: Normal inspection with full range of motion and normal capillary refill, Left shoulder without obvious deformity or Ecchymosis. Generalized tenderness of left shoulder, upper arm. Patient refusing passive and active range of motion. No crepitus 2+ radial pulses. Distal neurovascular intact. Neuroogic: alert and oriented 3, CN II-XII intact, able to ambulate with steady gait Skin: warm dry and intact with normal color Limitations: no limitations Course Vital Signs 09/13/23 09/13/23 02:22 04:00 Temperature 97.8 F Pulse Rate 106 H 80 Respiratory 18 18 Rate Blood Pressure 163/94 125/64 O2 Sat by Pulse 98 95 Oximetry Medical Decision Making - Medical Decision Making Was pt. sent in by a medical professional or institution (, PA, PERSONNEL RECORDS CLERK, urgent care, hospital, or assisted...) When possible be specific @ -[No] Did you speak to anyone other than the patient for history (EMS, parent, family, police, friend...)? What history was obtained from this source @ -[No] Did you review nursing and triage notes (agree or disagree)? Why? @ -[I reviewed and agree with nursing and triage notes] Were old charts reviewed (outside hosp., previous admission, EMS record, old EKG, old radiological studies, urgent care reports/EKG's, assisted records)? Report findings @ -[No old charts were reviewed] Differential Diagnosis (chest pain, altered mental status, abdominal pain women, abdominal pain men, vaginal bleeding, weakness, fever, dyspnea, syncope, headache, dizziness, GI bleed, back pain, seizure, CVA, palpatations, mental health, musculoskeletal)? @ -[not applicable] EKG interpreted by me (3pts min.). @ -[As above] X-rays interpreted by me (1pt min.). @ X-ray of left shoulder reveals surgical neck fracture of the left humerus with mild displacement. The greater tuberosity also appears to have a large fracture fragment Cervical spine x-ray and clavicle x-ray does not reveal any acute fracture or dislocation CT interpreted by me (1pt min.). @ -[None done] U/S interpreted by me (1pt. min.). @ -[None done] What testing was considered but not performed or refused? (CT, X-rays, U/S, labs)? Why? @ -[None] What meds were considered but not given or refused? Why? @ -[None] Did you discuss the management of the patient with other professionals (professionals i.e. , PA, PERSONNEL RECORDS CLERK, lab, RT, psych nurse, psychotherapist social worker, kelly machine operator, teacher, biological technical officer, geriatric case manager)? Give summary @ -[No] Was smoking cessation discussed for >3mins.? @ -[No] Was critical care preformed (if so, how long)? @ -[No] Were there social determinants of health that impacted care today? How? (Homelessness, low income, unemployed, alcoholism, drug addiction, transportation, low edu. Level, literacy, decrease access to med. care, care home, re hab)? @ -[No] Was there de-escalation of care discussed even if they declined (Discuss DNR or withdrawal of care, Hospice)? DNR status @ -[No] What co-morbidities impacted this encounter? (DM, HTN, Smoking, COPD, CAD, Cancer, CVA, ARF, Chemo, Hep., AIDS, mental health diagnosis, sleep apnea, morbid obesity)? @ -[None] Was patient admitted / discharged? Hospital course, mention meds given and route, prescriptions, significant lab abnormalities, going to OR and other pertinent info. @ Discharged. This is a pleasant 42-year-old -[place] female who presents the emergency department with a chief complaint of left arm pain. Patient had a thorough history and physical exam performed. Physical exam reveals no gross abnormality although patient is refusing any active or passive range of motion of left shoulder. Does not appear to have any tenderness in her left elbow or left wrist. Neurovascularly intact. 2+ radial pulses. Patient had x-rays which revealed surgical neck fracture of the left humerus. She was placed in a shoulder sling. She was provided prescription for Easton. Recommend close follow-up with orthopedics in 1-2 days. Discharged in stable condition. All questions were addressed. Case is discussed with Dr. Maharaj, ED attending who agrees with plan of care Undiagnosed new problem with uncertain prognosis? @ -[No] Drug Therapy requiring intensive monitoring for toxicity (Heparin, Nitro, Insulin, Cardizem)? @ -[No] Were any procedures done? @ -[No] Diagnosis/symptom? @ -Left Humeral Neck Fracture - Fall Acute, or Chronic, or Acute on Chronic? @ -Acute Uncomplicated (without systemic symptoms) or Complicated (systemic symptoms)? @ Uncomplicated Side effects of treatment? @ -[No] Exacerbation, Progression, or Severe Exacerbation? @ -[No] Poses a threat to life or bodily function? How? (Chest pain, [place], ID, pneumonia, PE, COPD, DKA, ARF, appy, cholecystitis, CVA, Diverticulitis, Homicidal, Suicidal, threat to staff... and all critical care pts) @ -Low likelihood Disposition Clinical Impression: Fracture of neck of humerus, Fall Disposition: HOME SELF-CARE Condition: Good Instructions (If sedation given, give patient instructions): Arm Fracture in Adults (ED) Additional Instructions: Please take Tylenol or Motrin for Pain PLease take Easton for severe pain Follow up with orthopedics on Thursday09/15/2023 Please return to the emergency department if worsening symptoms Prescriptions: Ondansetron Odt [Zofran Odt] 4 mg PO Q8HR PRN #10 tab PRN Reason: Nausea Is patient prescribed a controlled substance at d/c from ED?: No Referrals: None,Stated [REFERRING] - 1-2 days Time of Disposition: 03:33
[2023-09-13] MEDS ORDERED: HYDROmorphone 1 MG/ML 1 ML SYRINGE IM STA ×2 (02:59→04:15)
[2023-09-13] MEDS ORDERED: ONDANSETRON ODT 4 MG TAB PO STA (03:19)
[2023-09-13 04:09] VITALS: BP 125/64; PULSE 80
[2023-09-13] MEDS ORDERED: ONDANSETRON 4 MG ODT STARTER PACK 2 TAB BTL PO STA (04:15)
--- NOTE | 2023-09-13 07:14 | XR ---
EXAMINATION TYPE: XR clavicle LT DATE OF EXAM: 09/13/2023 3:15 AM CLINICAL INDICATION:Female, 42 years old with history of fall, left arm pain; [facility] COMPARISON: 03/30/2022 TECHNIQUE: AP and cephalic tilt views were obtained of the left clavicle. FINDINGS/IMPRESSION: Surgical neck fracture of the left humerus with mild displacement. The greater tuberosity also appear s to have a large fracture fragment. There is intra-articular extension. The remainder of the osseous structures appear intact.
--- NOTE | 2023-09-13 07:14 | XR ---
EXAMINATION TYPE: XR shoulder complete LT DATE OF EXAM: 09/13/2023 3:15 AM CLINICAL INDICATION:Female, 42 years old with history of fall, left arm pain; COMPARISON: Same day radiographs TECHNIQUE: XR shoulder complete LT; shoulder was examined in AP, internally rotated and scapular Y p rojections. FINDINGS/IMPRESSION: Surgical neck fracture of the left humerus with mild displacement. The greater tuberosity also appear s to have a large fracture fragment. There is intra-articular extension. The remainder of the osseous structures appear intact.
--- NOTE | 2023-09-13 07:16 | XR ---
EXAMINATION TYPE: XR cervical spine limited DATE OF EXAM: 09/13/2023 3:15 AM CLINICAL INDICATION:Female, 42 years old with history of fall, left arm pain; [facility] COMPARISON: None TECHNIQUE: The cervical spine was imaged in frontal, lateral, and odontoid. FINDINGS: The osseous structures show normal alignment without evidence of an acute fracture. N Minimal osteoph ytes or facet joint arthropathy. The intervertebral disk spaces are >preserved. Pedicles are intact. Soft tissues are within normal limits. The odontoid appears intact. IMPRESSION: 1. No fracture or dislocation. 2. Minimal degenerative disc disease changes of the cervical spine.
== END 2023-09-13 04:28 | disposition home or self-care (01) ==
LOC: EC 02:20
DX: S42.212A Unspecified displaced fracture of surgical neck of left humerus, initial encounter for closed fracture (principal); I10 Essential (primary) hypertension; I25.2 Old myocardial infarction; F41.9 Anxiety disorder, unspecified; Z79.01 Long term (current) use of anticoagulants; Z79.899 Other long term (current) drug therapy; Z88.2 Allergy status to sulfonamides; Z88.7 Allergy status to serum and vaccine; Z88.5 Allergy status to narcotic agent; Z86.711 Personal history of pulmonary embolism; Z86.718 Personal history of other venous thrombosis and embolism; W18.2XXA Fall in (into) shower or empty bathtub, initial encounter
CPT/HCPCS: 72040; 73030; 73000; 99284; 96372 ×3; J1170; J1885; S0119

== ENCOUNTER 2023-09-13 13:50 | Emergency (ER) | payer OTHER ==
[2023-09-13 14:12] VITALS: TEMP 98
[2023-09-13] MEDS ORDERED: KETOROLAC 15 MG/ML 1 ML VIAL IM STA (14:20)
[2023-09-13] MEDS ORDERED: HYDROmorphone 1 MG/ML 1 ML SYRINGE IM STA (14:20)
--- NOTE | 2023-09-13 14:27 | ED ---
Recheck HPI - General Chief Complaint: Recheck/Abnormal Lab/Rx Stated Complaint: Pain Meds Time Seen by Provider: 09/13/23 14:14 Source: patient, RN notes reviewed Mode of arrival: ambulatory Limitations: no limitations - History of Present Illness Initial Comments: This is a 42-year-old female who presents to the emergency department for pain medication. States that she was evaluated here yesterday and found to have a left humeral head fracture. She was given a prescription for Dexter, however the pharmacy was out of this, and she was told that she needed to come to the emergency department for a new prescription. MD Complaint: medication refill request - Related Data Home Medications Medication Instructions Recorded Confirmed Lisinopril-Hctz 10-12.5 mg 1 tab PO DAILY 08/30/21 06/04/23 [Zestoretic 10-12.5] Ergocalciferol (Vitamin D2) 1,250 mcg PO Q7D 03/30/22 06/04/23 [Drisdol (50,000 Iu)] Apixaban [Eliquis] 5 mg PO BID 06/04/23 06/04/23 Betamethasone Dipropionate 1 applic TOPICAL DAILY PRN 06/04/23 06/04/23 [Betamethasone Dipropionate 0.05%] Escitalopram [Lexapro] 20 mg PO DAILY 06/04/23 06/04/23 Ferrous Sulfate [Iron] 325 mg PO MOWEFR 06/04/23 06/04/23 busPIRone HCl [Buspar] 5 mg PO TID 06/04/23 06/04/23 Previous Rx's Medication Instructions Recorded HYDROcodone/APAP 7.5-325MG [Dexter 1 tab PO Q6HR PRN #20 tab 09/13/23 7.5-325] Ondansetron Odt [Zofran Odt] 4 mg PO Q8HR PRN #10 tab 09/13/23 Allergies Allergy/AdvReac Type Severity Reaction Status Date / Time codeine Allergy Rash/Hives Verified 09/13/23 14:03 Influenza Virus Vaccines Allergy Rash/Hives Verified 09/13/23 14:03 Sulfa (Sulfonamide Allergy Unknown Verified 09/13/23 14:03 Antibiotics) Review of Systems ROS Statement: Those systems with pertinent positive or pertinent negative responses have been documented in the HPI. ROS Other: All systems not noted in ROS Statement are negative. Past Medical History Past Medical History: Deep Vein Thrombosis (DVT), Hyperlipidemia, Hypertension, Myocardial Infarction ([place]), Pulmonary Embolus (PE) Additional Past Medical History / Comment(s): PE 2016 Last Myocardial Infarction Date:: 3 weeks ago History of Any Multi-Drug Resistant Organisms: None Reported Past Surgical History: Section Additional Past Surgical History / Comment(s): Eye surgery Past Psychological History: Anxiety Smoking Status: Never smoker Past Alcohol Use History: Occasional Past Drug Use History: None Reported General Exam Limitations: no limitations General appearance: alert, in no apparent distress Head exam: Present: atraumatic, normocephalic, normal inspection Respiratory exam: Present: normal lung sounds bilaterally. Absent: respiratory distress, wheezes, rales, rhonchi, stridor Cardiovascular Exam: Present: regular rate, normal rhythm, normal heart sounds. Absent: systolic murmur, diastolic murmur, rubs, gallop, clicks Neurological exam: Present: alert, oriented X3, CN II-XII intact Psychiatric exam: Present: normal affect, normal mood Skin exam: Present: warm, dry, intact, normal color. Absent: rash Course Vital Signs 09/13/23 09/13/23 14:01 14:56 Temperature 98 F Pulse Rate 89 86 Respiratory 20 18 Rate Blood Pressure 123/80 147/83 O2 Sat by Pulse 99 98 Oximetry Medical Decision Making - Medical Decision Making This is a 42-year-old female who presents to the emergency department for medication refills. Was pt. sent in by a medical professional or institution? @ -No Did you speak to anyone other than the patient for history? @ -No Did you review nursing and triage notes? @ -Yes, and I agree, it is accurate with regards to the patient's symptoms. Were old charts reviewed? @ -No Differential Diagnosis? @ -Not applicable EKG interpreted by me (3pts min.)? @ -Not obtained X-rays interpreted by me (1pt min.)? @ -Not obtained CT interpreted by me (1pt min.)? @ -Not obtained U/S interpreted by me (1pt. min.)? @ -Not obtained What testing was considered but not performed? (CT, X-rays, U/S, labs)? Why? @ -None What meds were considered but not given? Why? @ -None Did you discuss the management of the patient with other professionals? @ -No Did you reconcile home meds? @ -No Was smoking cessation discussed for >3mins.? @ -No Was critical care preformed (if so, how long)? @ -No Were there social determinants of health that impacted care today? How? (Homelessness, low income, unemployed, alcoholism, drug addiction, transportation, low edu. Level, literacy, decrease access to med. care, nursing home, rehab)? @ -No Was there de-escalation of care discussed even if they declined? (Discuss DNR or withdrawal of care, Hospice)? @ -No What co-morbidities impacted this encounter? (DM, HTN, Smoking, COPD, CAD, Cancer, CVA, Hep., AIDS, mental health diagnosis, sleep apnea, morbid obesity)? @ -Humerus fracture Was patient admitted / discharged? @ -Discharged. Patient's Dexter was sent to [facility], and I verified that this was in stock. Patient discharged home in stable condition and will follow up with orthopedics. Undiagnosed new problem with uncertain prognosis? @ -None Drug Therapy requiring intensive monitoring for toxicity (Heparin, Nitro, Insulin, Cardizem)? @ -None Were any procedures done? @ -None Diagnosis/symptom? @ -Encounter for medication refill, humeral head fracture Acute, or Chronic, or Acute on Chronic? @ -Acute Uncomplicated (without systemic symptoms) or Complicated (systemic symptoms)? @ -Uncomplicated Side effects of treatment? @ -None Exacerbation, Progression, or Severe Exacerbation] @ -Not applicable Poses a threat to life or bodily function? @ -The humeral head fracture will impact her ability to use the left arm. Return precautions reviewed in depth, the patient is instructed to return to the emergency department with any new, worsening, or concerning symptoms. Patient verbalized understanding. This case was discussed in detail with the attending ED physician, Dr. Smith. Presentation, findings, and treatment plan discussed in detail as well. Disposition Clinical Impression: Fracture of neck of humerus, Encounter for medication refill Disposition: HOME SELF-CARE Instructions (If sedation given, give patient instructions): Proximal Humerus Fracture (ED) Additional Instructions: Return to the emergency department with any new, worsening, or concerning symptoms. Alternate with ibuprofen and Tylenol as needed for pain relief. Take the Dexter sparingly when your pain is the most severe be aware that it may make you drowsy. Follow up with orthopedics. Prescriptions: HYDROcodone/APAP 7.5-325MG [Dexter 7.5-325] 1 tab PO Q6HR PRN #20 tab PRN Reason: Pain Is patient prescribed a controlled substance at d/c from ED?: Yes When asked, does pt state using other controlled substances?: No If prescribed controlled substance>3 days was MAPS reviewed?: Prescribed <3 Days Referrals: Shonda Melton MD [Primary Care Provider] - 1-2 days
[2023-09-13 15:18] VITALS: BP 147/83; PULSE 86; RESP 18
== END 2023-09-13 15:13 | disposition home or self-care (01) ==
LOC: EC 13:50
DX: S42.202A Unspecified fracture of upper end of left humerus, initial encounter for closed fracture (principal); Z76.0 Encounter for issue of repeat prescription; I25.2 Old myocardial infarction; I10 Essential (primary) hypertension; F41.9 Anxiety disorder, unspecified; Z79.899 Other long term (current) drug therapy; Z88.5 Allergy status to narcotic agent; Z88.2 Allergy status to sulfonamides; Z88.7 Allergy status to serum and vaccine; X58.XXXA Exposure to other specified factors, initial encounter
CPT/HCPCS: 99283; 96372 ×2; J1170; J1885

== ENCOUNTER → 2023-09-17 | Outpatient (CLI) | payer OTHER ==
--- NOTE | 2023-09-17 16:19 | CT ---
EXAMINATION TYPE: CT shoulder LT wo con CT DLP: 696.3 mGycm, Automated exposure control for dose reduction was used. DATE OF EXAM: 09/17/2023 2:21 PM COMPARISON: Radiographs 09/13/2023. CLINICAL INDICATION:Female, 42 years old with history of S42.232A 3-PART FX OF SURGICAL NECK OF LEFT H; [facility], 3 part Fx of surgical neck of left humerus. Fall on Thursday morning. Pain down to lower humeru s. TECHNIQUE: Axial images were obtained of the CT shoulder LT wo con, Additional coronal and sagittal r eformatted images and soft tissue and bone window were obtained for review. 3-D reconstruction was cr eated on a separate workstation. Contrast used: mL of (None if empty) Oral contrast used: (None if empty) FINDINGS: Comminuted fractures of the proximal left humerus with multiple fracture fragments. There i s intra-articular extension with large fracture fragment involving the greater tubercle. There is mil d displacement of the fracture fragments. IMPRESSION: Comminuted left proximal humerus fracture with intra-articular extension and multiple fragments. Larg e fragment of the greater tubercle noted. There is mild displacement of the fracture fragments.
== END | disposition home or self-care (01) ==
LOC: RADCTMAIN 13:55
PROVIDERS: ATTEND Orthopaedic Surgery
DX: S42.352A Displaced comminuted fracture of shaft of humerus, left arm, initial encounter for closed fracture (principal); S42.232A 3-part fracture of surgical neck of left humerus, initial encounter for closed fracture; W19.XXXA Unspecified fall, initial encounter

== ENCOUNTER → 2024-06-03 | Outpatient (CLI) | payer OTHER ==
--- NOTE | 2024-06-05 12:27 | MM ---
Reason for Exam: Screening (asymptomatic). Last mammogram was performed 1 year(s) and 1 month(s) ago. Patient History: Menarche at age 12. First Full-Term at age 15. Premenopausal. 2017, Stereotactic Core Biopsy on the Left side. Paternal aunt had breast cancer, age 45. Risk Values: Marika 5 year model risk: 0.8%. NCI Lifetime model risk: 8.7%. Prior Study Comparison: 12/31/2020 Right MG 3D diag mammo w/cad [facility] - 2, [facility] . 04/25/2022 Bilateral MG 3D screening mammo w/cad, [facility]. 04/28/2023 Bilateral MG 3D diag mammo w/cad [facility], [facility]. Tissue Density: There are scattered areas of fibroglandular density. Findings: Analyzed By CAD. Right breast: There is no suspicious group of microcalcifications or new suspicious mass. Benign-appearing calcifications right breast. Left breast: There is no suspicious group of microcalcifications or new suspicious mass. Overall Assessment: Benign, BI-RAD 2 Management: Screening Mammogram of both breasts in [address] [facility] will attempt to contact patient to return for supplemental views and ultrasound if indicated. Patient should continue monthly self-breast exams. A clinical breast exam by your physician is recommended on an annual basis. This exam should not preclude additional follow-up of suspicious palpable abnormalities. Note on Marika scores and lifetime risk: 1. A Marika score greater than 3% is considered moderate risk. If this is the case, consider specialist referral to assess eligibility for a risk reducing agent. 2. If overall lifetime risk for the development of breast cancer is 20% or higher, the patient may qualify for future screening with alternating mammogram and breast MRI. Electronically signed and approved by: Issa Aguilar DO
== END | disposition home or self-care (01) ==
LOC: RADMAMWWP 11:44
PROVIDERS: ATTEND Family Medicine
DX: Z12.31 Encounter for screening mammogram for malignant neoplasm of breast
CPT/HCPCS: 77063; 77067

== ENCOUNTER 2025-01-25 21:05 | Emergency (ER) | payer OTHER ==
[2025-01-25 21:35] VITALS: RESP 18
[2025-01-25] MEDS: DEXAMETHASONE SOD PHOSPHATE 10 MG/ML 1 ML VIAL IM STA (23:05)
[2025-01-25] MEDS: KETOROLAC 15 MG/ML 1 ML VIAL IM STA (23:08)
[2025-01-25] MEDS: LIDOCAINE 4% PATCH TOPICAL ONE (23:11)
--- NOTE | 2025-01-25 23:53 | ED ---
Back Pain HPI - General Chief Complaint: Back Pain/Injury Stated Complaint: Back Pain Time Seen by Provider: 01/25/25 21:46 Source: patient - History of Present Illness Initial Comments: 44-year-old female presenting with chief complaint of back pain. Pain is located in the lower back. 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 This happened earlier today. She is having no loss of bowel or bladder control or saddle anesthesia. No urinary symptoms. No fever. No vomiting. She took Tylenol at home. No radiation of pain down the legs. She does have some pain in her hips. No numbness or tingling. She does have history of back pain. - Related Data Home Medications Medication Instructions Recorded Confirmed Lisinopril-Hctz 10-12.5 mg 1 tab PO DAILY 08/30/21 06/04/23 [Zestoretic 10-12.5] Ergocalciferol (Vitamin D2) 1,250 mcg PO Q7D 03/30/22 06/04/23 [Drisdol (50,000 Iu)] Apixaban [Eliquis] 5 mg PO BID 06/04/23 06/04/23 Betamethasone Dipropionate 1 applic TOPICAL DAILY PRN 06/04/23 06/04/23 [Betamethasone Dipropionate 0.05%] Escitalopram [Lexapro] 20 mg PO DAILY 06/04/23 06/04/23 Ferrous Sulfate [Iron] 325 mg PO MOWEFR 06/04/23 06/04/23 busPIRone HCl [Buspar] 5 mg PO TID 06/04/23 06/04/23 Previous Rx's Medication Instructions Recorded HYDROcodone/APAP 7.5-325MG [[place] 1 tab PO Q6HR PRN #20 tab 09/13/23 7.5-325] Ondansetron Odt [Zofran Odt] 4 mg PO Q8HR PRN #10 tab 09/13/23 Cyclobenzaprine [Flexeril] 10 mg PO TID PRN #15 tab 01/25/25 Allergies Allergy/AdvReac Type Severity Reaction Status Date / Time codeine Allergy Rash/Hives Verified 09/13/23 14:03 Influenza Virus Vaccines Allergy Rash/Hives Verified 09/13/23 14:03 Sulfa (Sulfonamide Allergy Unknown Verified 09/13/23 14:03 Antibiotics) Review of Systems ROS Statement: Those systems with pertinent positive or pertinent negative responses have been documented in the HPI. ROS Other: All systems not noted in ROS Statement are negative. Past Medical History Past Medical History: Deep Vein Thrombosis (DVT), Hyperlipidemia, Hypertension, Myocardial Infarction ([place]), Pulmonary Embolus (PE) Additional Past Medical History / Comment(s): PE 2016 Last Myocardial Infarction Date:: 3 weeks ago History of Any Multi-Drug Resistant Organisms: None Reported Past Surgical History: Section Additional Past Surgical History / Comment(s): Eye surgery Past Psychological History: Anxiety Smoking Status: Never smoker Past Alcohol Use History: Occasional Past Drug Use History: Marijuana General Exam General appearance: alert, in no apparent distress Head exam: Present: atraumatic, normocephalic, normal inspection Eye exam: Present: normal appearance, EOMI. Absent: periorbital swelling Neck exam: Present: normal inspection. Absent: meningismus Respiratory exam: Absent: respiratory distress Cardiovascular Exam: Present: regular rate Extremities exam: Present: normal inspection Back exam: Present: normal inspection, tenderness Neurological exam: Present: alert, oriented X3 Psychiatric exam: Present: normal affect, normal mood Skin exam: Present: warm, dry, normal color Course Vital Signs 01/25/25 21:30 Temperature 97.8 F Pulse Rate 87 Respiratory 18 Rate Blood Pressure 161/93 O2 Sat by Pulse 100 Oximetry Medical Decision Making - Medical Decision Making Was pt. sent in by a medical professional or institution (Dr. PA, [employer], urgent care, hospital, or [facility]...) When possible be specific @ -No Did you speak to anyone other than the patient for history (EMS, parent, family, police, friend...)? What history was obtained from this source @ -No Did you review nursing and triage notes (agree or disagree)? Why? @ -I reviewed and agree with nursing and triage notes Were old charts reviewed (outside hosp., previous admission, EMS record, old EKG, old radiological studies, urgent care reports/EKG's, [facility] records)? Report findings @ -No old charts were reviewed Differential Diagnosis (chest pain, altered mental status, abdominal pain women, abdominal pain men, vaginal bleeding, weakness, fever, dyspnea, syncope, headache, dizziness, GI bleed, back pain, seizure, CVA, palpatations, mental health, musculoskeletal)? @ - MDM Differential Back Pain: Strain, zoster, cauda equina syndrome, epidural abscess, vertebral osteomyelitis, discitis, fracture, subluxation, disc herniation, DJD, spinal stenosis, dissection, AAA, pancreatitis, peptic ulcer disease, pyelonephritis, kidney stone… this is not meant to be an all-inclusive list. EKG interpreted by me (3pts min.). @ -As above X-rays interpreted by me (1pt min.). @ -None done CT interpreted by me (1pt min.). @ -None done U/S interpreted by me (1pt. min.). @ -None done What testing was considered but not performed or refused? (CT, X-rays, U/S, labs)? Why? @ -X-ray considered, however patient does not want an x-ray as she does not think it would show much. What meds were considered but not given or refused? Why? @ -None Did you discuss the management of the patient with other professionals (professionals i.e. , PA, [employer] STAMPER, lab, RT, psych nurse, social sciences department chair, yarder engineer, teacher, aoc aadc operations staff officer, case repairer)? Give summary @ -No Was smoking cessation discussed for >3mins.? @ -No Was critical care preformed (if so, how long)? @ -No Were there social determinants of health that impacted care today? How? (Homelessness, low income, unemployed, alcoholism, drug addiction, transportation, low edu. Level, literacy, decrease access to med. care, senior care, rehab)? @ -No Was there de-escalation of care discussed even if they declined (Discuss DNR or withdrawal of care, Hospice)? DNR status @ -No What co-morbidities impacted this encounter? (DM, HTN, Smoking, COPD, CAD, Cancer, CVA, ARF, Chemo, Hep., AIDS, mental health diagnosis, sleep apnea, morbid obesity)? @ -None Was patient admitted / discharged? Hospital course, mention meds given and route, prescriptions, significant lab abnormalities, going to OR and other pertinent info. 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 History and physical examination are conducted. No red flag symptoms. Patient does not want an x-ray. She is given pain medication and reports some improvement on reassessment. She is educated on today's findings. Instructed to follow-up with orthopedics. Follow-up with PCP. Report back to ER with any new or worsening symptoms. Discussed return parameters and answered all questions. Patient conveyed verbal understanding and agreed to the plan. I discussed this case in detail with my attending Dr. Vasquez Undiagnosed new problem with uncertain prognosis? @ -No Drug Therapy requiring intensive monitoring for toxicity (Heparin, Nitro, Insulin, Cardizem)? @ -No Were any procedures done? @ -No Diagnosis/symptom? @ -Lower back strain Acute, or Chronic, or Acute on Chronic? @ -Acute on chronic Uncomplicated (without systemic symptoms) or Complicated (systemic symptoms)? @ -Uncomplicated Side effects of treatment? @ -No Exacerbation, Progression, or Severe Exacerbation? @ -No Poses a threat to life or bodily function? How? (Chest pain, [place], [place], pneumonia, PE, COPD, DKA, ARF, appy, cholecystitis, CVA, Diverticulitis, Homicidal, Suicidal, threat to staff... and all critical care pts) @ -Unlikely Disposition Clinical Impression: Strain of lumbar region Disposition: HOME SELF-CARE Condition: Good Instructions (If sedation given, give patient instructions): Acute Low Back Pain (ED) Additional Instructions: Follow-up with PCP and orthopedics. Report back to ER with any new or worsening symptoms. Do not take cyclobenzaprine before driving or operating heavy machinery as it may cause drowsiness Prescriptions: Cyclobenzaprine [Flexeril] 10 mg PO TID PRN #15 tab PRN Reason: Spasms Is patient prescribed a controlled substance at d/c from ED?: No Referrals: Shonda Melton MD [Primary Care Provider] - 1-2 days Stacia Melo DO [Doctor of Osteopathic Medicine] - 1-2 days Time of Disposition: 23:53
[2025-01-26 00:25] VITALS: BP 167/90; PULSE 77; TEMP 97.9
[2025-01-26] MEDS: CYCLOBENZAPRINE 10 MG TAB PO STA (00:25)
== END 2025-01-26 00:29 | disposition home or self-care (01) ==
LOC: EC 21:05
DX: S39.012A Strain of muscle, fascia and tendon of lower back, initial encounter (principal); Z88.5 Allergy status to narcotic agent; Z88.7 Allergy status to serum and vaccine; Z88.2 Allergy status to sulfonamides; X50.9XXA Other and unspecified overexertion or strenuous movements or postures, initial encounter; Y99.0 Civilian activity done for income or pay
CPT/HCPCS: 99283; 96372 ×2; J1100; J1885